=== PATIENT | male | born 1935 | race Asian ===

== ENCOUNTER 2019-06-25 13:31 | Inpatient (IN) | payer MEDICARE, MEDICAID ==
[~2019-06-25] VITALS: Ht 167.6 cm; Wt 62.6 kg
[2019-06-25] VITALS (8 sets, daily range): BP systolic 112–169; BP diastolic 68–80
[~2019-06-25 13:31] MED LIST: AMLODIPINE BESYL5 MG ORAL; ATENOLOL50 MG ORAL; ATORVASTATIN CA20 MG ORAL; DONEPEZIL HCL5 M2 ORAL; LEXAPRO10 MG ORAL; LOSARTAN POTASS50 MG ORAL; METFORMIN HCL500 M1 ORAL; NAMENDA10 MG ORAL; PROSCAR5 MG ORAL
--- NOTE | 2019-06-25 13:40 | NUR ---
ED Nurse Note: pt is triaged, awaiting for a private room outside of ER at this time with ambulance personnels.
[2019-06-25] MEDS ORDERED: MULTIVITAMINS1 EAC8 ORAL (13:47)
[2019-06-25] MEDS ORDERED: MYLANTA MAXIMU355 ML PO (13:47)
[2019-06-25] MEDS ORDERED: NAMENDA10 MG ORAL (13:47)
[2019-06-25] MEDS ORDERED: FISH OIL PO (13:47)
[2019-06-25] MEDS ORDERED: ACETAMINOPHEN325 M1 ORAL (13:47)
[2019-06-25] MEDS ORDERED: WEEKLY-D1250 MCG PO (13:47)
[2019-06-25] MEDS ORDERED: ZYPREXA5 MG ORAL (13:47)
--- NOTE | 2019-06-25 14:00 | NUR ---
ED Nurse Note: Pt brought in by [facility] for c/o left sided chest pain that started 45 minutes prior arrival. nitro spray x 1 was given en route. pt is sinus portia on cardiac catheterization technologist. (hr 45)
[2019-06-25] MEDS ORDERED: Omnipaque-300 100ml vial INJ ONE (14:15)
--- NOTE | 2019-06-25 14:23 | NUR ---
ED Nurse Note: swabs and blood sample sent down to lab
--- NOTE | 2019-06-25 14:25 | Emergency Room Report ---
History of Present Illness General Chief Complaint: Chest Pain Source: Patient, Medical Record, EMS Present Illness HPI Patient is an 84-year-old male sent in from [place] [facility] for increased chest pain. Pain had onset of symptoms approximately 45 minutes prior to arrival. Patient was brought in by ambulance. Patient reports of increased pain to the left side of his chest. Reportedly been having increased cough. Patient was given a nitro spray x1. Allergies: Coded Allergies: No Known Allergies (Unverified , 06/12/17) COVID-19 Screening Contact w/high risk pt: No Recent Travel to affected area: No Experienced COVID-19 symptoms?: No Patient History Past Medical History: see triage record Reviewed Nursing Documentation: PMH: Agreed; PSxH: Agreed Nursing Documentation-PMH Hx Hypertension: Yes - HTN Hx Diabetes: Yes - DM II Hx Gastrointestinal Problems: Yes - GERD History Of Psychiatric Problem: Yes - Anxiety, Schizoaffective disorder, Depression, Alzheimer's disease Review of Systems All Other Systems: negative except mentioned in HPI Physical Exam Vital Signs Date Time Temp Pulse Resp B/P (MAP) Pulse Ox O2 Delivery O2 Flow Rate FiO2 06/25/19 13:24 97.2 46 14 110/74 (86) 95 Room Air Sp02 EP Interpretation: reviewed, normal General Appearance: normal inspection, well appearing, no apparent distress, alert Head: atraumatic ENT: normal ENT inspection, hearing grossly normal, normal voice Neck: normal inspection, full range of motion, supple, no bony tend Respiratory: normal inspection, lungs clear, normal breath sounds, no respiratory distress, no retraction, no wheezing Cardiovascular #1: regular rate, rhythm, no edema Gastrointestinal: normal inspection, normal bowel sounds, soft, no guarding, no hernia, tenderness - Left upper quadrant tenderness Genitourinary: no CVA tenderness Musculoskeletal: normal inspection, back normal, normal range of motion Neurologic: alert, motor strength/tone normal, responsive, normal inspection Psychiatric: normal inspection, mood/affect normal Medical Decision Making Diagnostic Impression: Primary Impression: Chest pain Additional Impressions: Bradycardia Hypoxia Dementia ER Course Presented for chest pain. Differential diagnosis includes not limited to pneumonia, myocardial infarction, coronavirus infection, pulmonary embolism among others. Because of complexity of patient's case laboratory tests and imaging studies were ordered. Patient was noted to have some left-sided chest pain with a associated left upper abdomen tenderness. He was noted to be bradycardic with initial heart rate in the high 40s. EKG interpreted by me showed sinus bradycardia with a rate of [address] or T wave changes. Patient was placed on a monitor technician. Coronavirus swab was sent due to patient's residence in a [facility]. Chest x-ray showed Linear area of scar or atelectasis at the right base. The lungs otherwise appear clear. Pulmonary vascular is within limits. CT of the chest showed some bibasilar atelectasis without evidence of acute infiltrate. CT of abdomen and pelvis did not show any evidence of acute obstruction. Patient was discussed with Dr. Kaiser patient will be admitted for further evaluation of chest pain and bradycardia. Labs Test 06/25/19 14:13 White Blood Count 4.8 K/UL (4.8-10.8) Red Blood Count 4.70 M/UL (4.70-6.10) Hemoglobin 15.0 G/DL (14.2-18.0) Hematocrit 42.2 % (42.0-52.0) Mean Corpuscular Volume 90 FL (80-99) Mean Corpuscular Hemoglobin 31.9 PG (27.0-31.0) Mean Corpuscular Hemoglobin Concent 35.6 G/DL (32.0-36.0) Red Cell Distribution Width 11.3 % (11.6-14.8) Platelet Count 194 K/UL (150-450) Mean Platelet Volume 6.7 FL (6.5-10.1) Neutrophils (%) (Auto) 49.1 % (45.0-75.0) Lymphocytes (%) (Auto) 36.4 % (20.0-45.0) Monocytes (%) (Auto) 11.9 % (1.0-10.0) Eosinophils (%) (Auto) 2.0 % (0.0-3.0) Basophils (%) (Auto) 0.6 % (0.0-2.0) Sodium Level 142 MMOL/L (136-145) Potassium Level 4.6 MMOL/L (3.5-5.1) Chloride Level 107 MMOL/L (98-107) Carbon Dioxide Level 21 MMOL/L (21-32) Anion Gap 14 mmol/L (5-15) Blood Urea Nitrogen 30 mg/dL (7-18) Creatinine 1.3 MG/DL (0.55-1.30) Estimat Glomerular Filtration Rate 52.5 mL/min (>60) Glucose Level 121 MG/DL (74-106) Lactic Acid Level 1.90 mmol/L (0.4-2.0) Calcium Level 10.1 MG/DL (8.5-10.1) Total Bilirubin 0.6 MG/DL (0.2-1.0) Aspartate Amino Transf (AST/SGOT) 28 U/L (15-37) Alanine Aminotransferase (ALT/SGPT) 34 U/L (12-78) Alkaline Phosphatase 57 U/L (46-116) Total Creatine Kinase 108 U/L (26-308) Creatine Kinase MB 1.0 NG/ML (0.0-3.6) Creatine Kinase MB Relative Index 0.9 Troponin I 0.000 ng/mL (0.000-0.056) Pro-B-Type Natriuretic Peptide 108 pg/mL (0-125) Total Protein 7.8 G/DL (6.4-8.2) Albumin 4.0 G/DL (3.4-5.0) Globulin 3.8 g/dL Albumin/Globulin Ratio 1.1 (1.0-2.7) Lipase 253 U/L (73-393) EKG Diagnostic Results Rate: bradycardiac Rhythm: NSR ST Segments: no acute changes Last Vital Signs Date Time Temp Pulse Resp B/P (MAP) Pulse Ox O2 Delivery O2 Flow Rate FiO2 06/25/19 13:24 97.2 46 14 110/74 (86) 95 Room Air Status: unchanged Disposition: ADMITTED INPATIENT Condition: Stable Emre Cortes MD Jun 25, 2019 14:25
--- NOTE | 2019-06-25 14:39 | NUR ---
ED Nurse Note: x ray at bedside.
[2019-06-25 14:51] LABS: BASOPHILS % (AUTO) 0.6 % (0.0-2.0); HEMATOCRIT 42.2 % (42.0-52.0); LYMPHOCYTES % (AUTO) 36.4 % (20.0-45.0); MEAN CORPUSCULAR VOLUME 90 FL (80-99); MONOCYTES % (AUTO) 11.9 % (1.0-10.0); NEUTROPHILS % (AUTO) 49.1 % (45.0-75.0); PLATELET COUNT 194 K/UL (150-450); RED CELL DISTRIBUTION WIDTH 11.3 % (11.6-14.8); WHITE BLOOD COUNT 4.8 K/UL (4.8-10.8)
[2019-06-25 15:01] LABS: ANION GAP 14 mmol/L (5-15); BLOOD UREA NITROGEN 30 mg/dL (7-18); CALCIUM 10.1 MG/DL (8.5-10.1); CARBON DIOXIDE 21 MMOL/L (21-32); CHLORIDE 107 MMOL/L (98-107); CREATININE 1.3 MG/DL (0.55-1.30); POTASSIUM 4.6 MMOL/L (3.5-5.1); SODIUM 142 MMOL/L (136-145)
[2019-06-25 15:18] LABS: ALANINE AMINOTRANSFERASE 34 U/L (12-78); ALBUMIN/GLOBULIN RATIO 1.1 (1.0-2.7); ALKALINE PHOSPHATASE 57 U/L (46-116); ASPARTATE AMINO TRANSFERASE 28 U/L (15-37); BILIRUBIN,TOTAL 0.6 MG/DL (0.2-1.0); CREATINE KINASE 108 U/L (26-308)
--- NOTE | 2019-06-25 15:21 | Diagnostic Imaging Report ---
History: CP Exam: XR CXR 1 VIEW Comparison: FINDINGS: Linear area of scar or atelectasis at the right base. The lungs otherwise appear clear. Pulmonary vascular is within limits. Cardiac and mediastinal contours appear within limits. Atherosclerotic changes aortic arch. Old posterior left seventh rib fracture. Left shoulder osteoarthrosis. IMPRESSION: Linear area of scar or atelectasis at the right base. The lungs otherwise appear clear. Pulmonary vascular is within limits.
--- NOTE | 2019-06-25 15:35 | NUR ---
ED Nurse Note: PT in bed resting, no acute distress is noted. VSS as documented.
--- NOTE | 2019-06-25 17:19 | Diagnostic Imaging Report ---
EXAM: CT Chest With Intravenous Contrast CLINICAL HISTORY: PAIN TECHNIQUE: Axial computed tomography images of the chest with intravenous contrast. CTDI is 68.3 mGy and DLP is 434.7 mGy-cm. One or more of the following dose reduction techniques were used: automated exposure control, adjustment of the mA and/or kV according to patient size, use of iterative reconstruction technique. COMPARISON: Chest x-ray today FINDINGS: Lungs: Hypoventilatory lungs. Mild bibasilar lung atelectasis. Pleural space: Unremarkable. No pneumothorax. No significant effusion. Heart: Cardiomegaly. Coronary artery disease. No significant pericardial effusion. Bones/joints: Old left posterior rib fracture. No dislocation. Soft tissues: Unremarkable. Vasculature: Right shoulder and upper back venous collaterals may be from chronicle venous occlusive process. Atherosclerotic vascular disease. No thoracic aortic aneurysm. Lymph nodes: Unremarkable. No enlarged lymph nodes. IMPRESSION: 1. Hypoventilatory lungs. Mild bibasilar lung atelectasis. 2. Cardiomegaly. Coronary artery disease. 3. Right shoulder and upper back venous collaterals may be from chronicle venous occlusive process. EXAM: CT Abdomen and Pelvis With Intravenous Contrast CLINICAL HISTORY: PAIN TECHNIQUE: Axial computed tomography images of the abdomen and pelvis with intravenous contrast. CTDI is 68.3 mGy and DLP is 434.7 mGy-cm. One or more of the following dose reduction techniques were used: automated exposure control, adjustment of the mA and/or kV according to patient size, use of iterative reconstruction technique. COMPARISON: No relevant prior studies available. FINDINGS: Lung bases: Bibasilar lung atelectasis. ABDOMEN: Liver: 10 mm Low-density lesion right lobe of the liver. Fatty liver. Gallbladder and bile ducts: Small gallstone. No ductal dilation. Pancreas: Unremarkable. No mass. No ductal dilation. Spleen: Unremarkable. No splenomegaly. Adrenals: Unremarkable. No mass. Kidneys and ureters: Low-density lesions bilateral kidneys, largest 6 cm of the left kidney and 12 mm in the right kidney, likely cysts. Mild bilateral perinephric stranding likely senescent. No obstructive uropathy. 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 A few scattered colonic diverticuli. No bowel obstruction or inflammatory changes. No mucosal thickening. PELVIS: Appendix: No findings to suggest acute appendicitis. Bladder: Unremarkable. No mass. Reproductive: Slightly prominent prostate. ABDOMEN and PELVIS: Intraperitoneal space: Unremarkable. No free air. No significant fluid collection. Bones/joints: Degenerative changes of the spine. Mild grade 1 anterolisthesis of L4 on L5 and retrolisthesis of L1 on L2 and L2 on L3. Mild/moderate degenerative changes of the hips. No acute fracture. No dislocation. Soft tissues: Unremarkable. Vasculature: Atherosclerotic vascular disease. No abdominal aortic aneurysm. Lymph nodes: Unremarkable. No enlarged lymph nodes. IMPRESSION: 1. 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 2. A few scattered colonic diverticuli. No bowel obstruction or inflammatory changes. 3. Small gallstone. 4. Low-density lesions bilateral kidneys, largest 6 cm of the left kidney and 12 mm in the right kidney, likely cysts.
--- NOTE | 2019-06-25 17:20 | NUR ---
ED Nurse Note: pt is in bed resting, no acute distress is noted. VSS as documented.
[2019-06-25] MEDS ORDERED: Milk of Magnesia 30ml Ud ORAL PRN (18:00)
--- NOTE | 2019-06-25 19:02 | NUR ---
ED Nurse Note: report given to LESLIE liang. endorsed plan of care.
--- NOTE | 2019-06-25 19:03 | NUR ---
ED Nurse Note: Patient is resting comfortably with no s/s of acute distress. Willcontinue to monitor.
--- NOTE | 2019-06-25 20:01 | NUR ---
ED Nurse Note: Perineal care provided, bed linen changed due to soiling. Patient provided with condom catheter for hygiene promotion and wound care prevention. Patient is awake and alert x2, able to communicate pain and discomfort well and aid in performance of ADL and poistion changes. Will continue to monitor progress.
[2019-06-25] MEDS: NovoLOG Insulin Flexpen SUBQ SCH (21:00)
--- NOTE | 2019-06-25 21:25 | NUR ---
ED Nurse Note: Patient expressed pain at left chest area upon palpation. Patient rendered Tylenol, will follow-up with reassessment accordingly. Patient tolerated scheduled medication administration well. Patient blood sugar below dosing for sliding scale, no insulin injection needed at this time. Patient rendered a sandwich and cranberry juice. Will continue to montor for progress.
--- NOTE | 2019-06-25 21:28 | NUR ---
ED Nurse Note: Patitent remains bradycardic ranging from 47-59, asymptomatic. Patient currently eating a sandwich without difficulty. Will continue to monitor.
--- NOTE | 2019-06-26 00:06 | NUR ---
ED Nurse Note: Patient is sleeping and experience hypotensive reading of 70/43. ERMD informed and verbal order for 1L IV fluid, N/S ordered and hung. Will continue to monitor progress of patient.
[2019-06-26 00:08] VITALS: BP 97/61
[2019-06-26 01:08] VITALS: BP 129/65
--- NOTE | 2019-06-26 01:08 | NUR ---
ED Nurse Note: Condom catheter dislodged and patient voided on bed. Perineal care provided along with new, clean linen. Smaller condom catheter applied. Blood pressure withing normal range. Will continue to monitor for transport to floor.
--- NOTE | 2019-06-26 01:44 | NUR ---
ED Nurse Note: Called and rendered report to Courtney NELSON.
--- NOTE | 2019-06-26 01:50 | NUR ---
NURSE NOTES: Received patient from LESLIE Lr. Patient awake, alert, and responsive. AOx2. Able to understand little irish, but is primarily frisian speaking. Persistently bradycardic, but asymptomatic. IV on right hand #20g, intact and flushed. No erythema, bleeding, or infiltration. 1/2 NS running at 75ml/hr, being tolerated well. Skin intact. Condom catheter in secured in place, draining well. Patient on contact and droplet precaution. Bed rails raised x2. Bed in lowest position, brakes engaged. Call light placed within reach. Will continue to monitor. Admission orders from Dr. Kaiser acknowledged.
--- NOTE | 2019-06-26 02:00 | NUR ---
ED Nurse Note: Patient transported to floor by zyglo technician and RN without complications.
--- NOTE | 2019-06-26 03:15 | Consultation ---
DATE OF CONSULTATION: 06/25/2019 CONSULTING PHYSICIAN: Nikos Kaiser M.D. REQUESTING PHYSICIAN: Rakesh Martinez MD. REASON FOR CONSULTATION: Bradycardia. HISTORY OF PRESENT ILLNESS: This is an 84-year-old [place] male, who resides at a prison facility where a large number of residents of contracted COVID-19. The patient apparently complained of chest discomfort. He was referred to the emergency room where he noted cough, congestion, and chest pain on the left side. He was given spray of nitroglycerin. It is unclear whether his symptoms resolved subsequently. The patient does have a known history of coronary artery disease. He has not had any fevers. emergency room workup was notable for a chest x-ray that suggested possible infiltrate, however, a CAT scan of the chest subsequently obtained did not reveal any focal consolidation, but some atelectasis. The patient was also noted to have bradycardia in the 40s and I have been asked to assist with further cardiovascular care. The patient is being placed on isolation for possible COVID-19 due to his risk factors. PAST MEDICAL HISTORY: Type 2 diabetes mellitus, gastroesophageal reflux disease, coronary artery disease, hypertensive heart disease, schizoaffective disorder, dementia with agitation, depression, osteoarthritis. ALLERGIES: None. MEDICATIONS: Reviewed and reconciled. FAMILY HISTORY: Noncontributory. SOCIAL HISTORY: Reportedly negative for smoking and substance abuse. He presently resides in a prison facility. REVIEW OF SYSTEMS: No fevers. No loss of vision. He is on insulin. He does have some apparent history of neuropathic pain. He does have cerebrovascular disease as noted above. He has had a prior history of coronary disease. He is on a beta-brea. There is no history of abnormal blood clotting or recent steroid use. PHYSICAL EXAMINATION: VITAL SIGNS: Blood pressure 110/74, pulse 46, respirations 14, afebrile, and room air oxygen saturation 95%. LUNGS: Bilateral breath sounds. No wheezing. Oropharynx clear. NECK: Supple. No bruits. No jugular venous distention. CARDIAC: Regular rhythm and rate. Normal S1 and S2 with a fourth heart sound. ABDOMEN: Soft. EXTREMITIES: No edema. LABORATORY DATA: EKG reveals sinus bradycardia. No acute ST-T wave change. Pro-natriuretic peptide is 108. Troponin is 0. CK is 106, BUN 30, creatinine 1.3, glucose 121, lactic acid normal. Sodium 142, potassium 4.6, and bicarb 21. White count 4.8 and hemoglobin 15. IMPRESSION: 1. Possible acute coronary syndrome. 2. Sinus bradycardia on beta-blockers. 3. Atelectasis and possible early pneumonic process. 4. COVID-19 exposure. 5. Type 2 diabetes mellitus. 6. Cerebrovascular disease with dementia and agitation. PLAN: 1. Cardiac monitoring. 2. Isolation. 3. COVID-19 swab already obtained in the emergency room. 4. Hold beta-brea. 5. Titrate ____ antihypertensive regimen based on clinical parameters. 6. DVT prophylaxis. 7. Antiplatelet therapy. Nikos Kaiser M.D. DR: RADHAMES JOB#: [id number] CC:
[2019-06-26] MEDS: NovoLOG Insulin Flexpen SUBQ SCH ×7 (06:20→20:58)
[2019-06-26 06:21] LABS: BASOPHILS % (AUTO) 0.5 % (0.0-2.0); HEMATOCRIT 41.4 % (42.0-52.0); HEMOGLOBIN 14.7 G/DL (14.2-18.0); LYMPHOCYTES % (AUTO) 36.4 % (20.0-45.0); MEAN CORPUSCULAR VOLUME 90 FL (80-99); MONOCYTES % (AUTO) 10.1 % (1.0-10.0); PLATELET COUNT 179 K/UL (150-450); RED CELL DISTRIBUTION WIDTH 11.3 % (11.6-14.8); WHITE BLOOD COUNT 4.7 K/UL (4.8-10.8)
[2019-06-26 07:10] LABS: ANION GAP 12 mmol/L (5-15); BLOOD UREA NITROGEN 23 mg/dL (7-18); CALCIUM 9.3 MG/DL (8.5-10.1); CARBON DIOXIDE 22 MMOL/L (21-32); CHLORIDE 108 MMOL/L (98-107); CREATININE 1.1 MG/DL (0.55-1.30); POTASSIUM 3.8 MMOL/L (3.5-5.1); SODIUM 142 MMOL/L (136-145)
[2019-06-26 07:25] LABS: ALANINE AMINOTRANSFERASE 33 U/L (12-78); ALBUMIN 3.7 G/DL (3.4-5.0); ALBUMIN/GLOBULIN RATIO 1.1 (1.0-2.7); ALKALINE PHOSPHATASE 60 U/L (46-116); ASPARTATE AMINO TRANSFERASE 24 U/L (15-37); BILIRUBIN,TOTAL 0.5 MG/DL (0.2-1.0); CHOLESTEROL 171 MG/DL (< 200); HDL CHOLESTEROL 42 MG/DL (40-60); TRIGLYCERIDES 128 MG/DL (30-150)
--- NOTE | 2019-06-26 07:30 | NUR ---
NURSE NOTES: pt in bed just had breakfast. 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 Pt reported no pain. Call light within reach, bed locked an in lowest position. Bed side rails up, and bed alarm on for safety. will continue to monitor pt.
--- NOTE | 2019-06-26 07:48 | NUR ---
HAND-OFF: Report given to LESLIE Lozano.
[2019-06-26 08:10] VITALS: BP 114/63
[2019-06-26] MEDS: Aspirin Baby 81mg ORAL SCH (09:24)
[2019-06-26] MEDS: Heparin 5000 units/ml inj SUBQ SCH ×2 (09:28→20:57)
--- NOTE | 2019-06-26 09:34 | NUR ---
NURSE NOTES: Scanner not working, manually admitted meds
--- NOTE | 2019-06-26 15:30 | NUR ---
CASE MANAGEMENT:REVIEW 84 YR OLD MALE BIBA FROM [facility] CC: CHEST PAIN SI: SUSPECTED COVID 19. 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
--- NOTE | 2019-06-26 15:45 | Consultation ---
DATE OF CONSULTATION: 06/26/2019 INFECTIOUS DISEASES CONSULTATION CONSULTING PHYSICIAN: Albaro Dawson MD. REFERRING PHYSICIAN: Nikos Kaiser MD. REASON FOR CONSULTATION: Rule out COVID-19 pneumonia. HISTORY OF PRESENTING ILLNESS: This is an 84-year-old gentleman with history of diabetes, hypertension, schizoaffective disorder, dementia, who came in with congestion along with cough and chest pain. There was a concern for COVID-19 pneumonia and an Infectious Diseases consultation has been obtained for antibiotics. PAST MEDICAL HISTORY: 1. History of diabetes. 2. Hypertension. 3. GERD. 4. Coronary artery disease. 5. Schizoaffective disorder. 6. Dementia. 7. Depression. 8. Osteoarthritis. SOCIAL HISTORY: No history of smoking, alcohol, or drug use. FAMILY HISTORY: Unknown. REVIEW OF SYSTEMS: Unable to obtain currently. MEDICATIONS: As an inpatient, the patient is on subcu heparin, aspirin, insulin, atorvastatin, Tylenol, and milk of magnesia. ALLERGIES: No known drug allergies. PHYSICAL EXAMINATION: VITAL SIGNS: Temperature of 97.6, T-max of 97.8, pulse of 59, respiratory rate of 19, blood pressure 114/63, O2 saturation of 98%. GENERAL: Examination deferred due to possibility of COVID-19. LABORATORY AND DIAGNOSTIC DATA: White count 4.7, hemoglobin 14.7, hematocrit 41.4, MCV 90, platelet count of 179,000; neutrophils of 51%. Sodium 142, potassium 3.8, chloride 108, bicarb 22, BUN 23, creatinine 1.1, glucose 117, calcium 9.3. Total bilirubin 0.5, AST 24, ALT 33, and alkaline phosphatase 60. Total protein 7.2, albumin 3.7. Cholesterol 171. Nasal swab was negative for influenza A and B. Chest x-ray is showing lungs are clear. CT of chest, abdomen, and pelvis is showing mild bibasilar lung atelectasis, coronary artery disease, and cardiomegaly. ASSESSMENT: This is an 84-year-old gentleman with history of diabetes, hypertension, schizoaffective disorder, dementia, who comes in with cough along with congestion and chest pain. A CT is negative for consolidation, but showing some atelectasis. 1. We would like to rule out COVID-19 pneumonia as a possibility. 2. Hypertension. 3. Diabetes. 4. Schizoaffective disorder. PLAN: 1. Awaiting testing for COVID-19. 2. Continue off antibiotics. 3. Continue isolation. I would like to thank, Dr. Kaiser, for this consultation. Christianokuntala Jovani Dawson DR: Alana JOB#: [id number] CC: Nikos Kaiser MD
--- NOTE | 2019-06-26 16:14 | Consultation ---
DATE OF CONSULTATION: 06/26/2019 PULMONARY CONSULTATION HISTORY OF PRESENT ILLNESS: This is an 84-year-old male who is a prison resident that particular facility has had multiple COVID-19 positive patients. The patient presented of chest discomfort and was brought to the emergency room. He was noted to have cough, chest congestion. He was admitted to the hospital for further workup and care. I have reviewed his imaging studies and I note that although his x-ray chest was clear except for atelectasis in the right lung base, he did undergo a CT of the chest, abdomen, pelvis, which showed bibasilar lung atelectasis and old posterior rib fracture but otherwise normal pulmonary parenchyma. At this time, the patient unable to provide any further history. PAST MEDICAL HISTORY: Notable for diabetes mellitus, GERD, CAD, hypertensive heart disease, schizoaffective disorder, dementia, depression, osteoarthritis. ALLERGIES: None. MEDICATIONS: Home medications reviewed and reconciled in chart. Current medications include half-normal saline, Tylenol, aspirin, Lipitor, DVT prophylaxis with subcutaneous heparin. REVIEW OF SYSTEMS: Unreliable. PHYSICAL EXAMINATION: GENERAL: Reveals an 84-year-old male. VITAL SIGNS: Blood pressure 114/60, heart rate is 62, respirations 18, he is afebrile, O2 saturation 97% on 2 liters of oxygen. HEENT: Unremarkable. CHEST: Clear breath sounds bilaterally. HEART: Normal heart sounds. ABDOMEN: Soft. LABORATORY DATA: Lab testing shows white count 4.7, otherwise normal CBC and BMP. Creatinine is 1.1. Troponin negative x2. LFTs are normal. IMPRESSION: 1. intermediate resident. 2. Positive history of exposure to COVID-19 patients. 3. Hypertension. 4. Diabetes mellitus. 5. Atelectasis. DISCUSSION: It is prudent to keep the patient on isolation till COVID-19 PCR is negative. Continue current medications and care. Order oxygen and pulmonary hygiene. We will follow carefully. Lenin Harris M.D. DR: Rocío JOB#: [id number] CC:
[2019-06-26] MEDS: Vancomycin 500 MG in NS 110 ML IVPB SCH (17:47)
--- NOTE | 2019-06-26 19:30 | NUR ---
HAND-OFF: Report given to Vyas/RN, pt in stable condition in bed.
--- NOTE | 2019-06-26 19:45 | NUR ---
NURSE NOTES: Pt received from LESLIE Lozano alert and oriented x2 to name and place, requires frequent re-orientation and re-direction as patient is confused. IV site asymptomatic and patent on R hand 20g running to NS at 75 as ordered. Bed alarm on. Bed in lowest position, call light and belongings within reach.
[2019-06-26 20:00] VITALS: BP 120/66
[2019-06-27] VITALS: BP 100/58
[2019-06-27] MEDS: Vancomycin 500 MG in NS 110 ML IVPB SCH ×2 (05:42→17:18)
--- NOTE | 2019-06-27 05:44 | Progress Note ---
DATE: 06/26/2019 CARDIOLOGY PROGRESS NOTE SUBJECTIVE: The patient remains on empiric antimicrobials. Blood culture positive for gram-positive cocci x1 noted. The patient remains afebrile. Still with episodes of bradycardia. Oxygen saturation on 2 liters is 98%. OBJECTIVE: LUNGS: Bilateral breath sounds. No wheezing. CARDIAC: Regular rhythm. Slow rate. Normal S1 and S2. ABDOMEN: Soft. EXTREMITIES: No edema. LABORATORY DATA: Monitor sinus bradycardia. White count 4.7 and hemoglobin 14.7. Sodium 142, potassium 3.8, bicarb 22, BUN 23, creatinine 1.1, TSH 2.2. Cholesterol, LDL is 104 and HDL is 42. Troponin negative x2. IMPRESSION: 1. pattern with no signs of acute myocardial infarction. 2. Sinus bradycardia, asymptomatic. The patient has been off beta-brea since admission. 3. Possible bacteremia with gram-positive cocci. Now, we will start on vancomycin. 4. Insulin-requiring diabetes, on insulin with titration. 5. Dyslipidemia. The patient may benefit from higher doses of statin therapy. 6. We will defer for now. PLAN: 1. Continue aspirin. 2. Hold beta-brea. 3. Await final cultures. 4. Pulmonary and ID consults noted. 5. We will follow. 6. Presently, there is no indication for a pacemaker. Nikos Kaiser M.D. DR: RADHAMES JOB#: [id number] CC:
[2019-06-27] MEDS: NovoLOG Insulin Flexpen SUBQ SCH ×7 (06:30→21:00)
--- NOTE | 2019-06-27 07:15 | NUR ---
HAND-OFF: Report given to LESLIE Lozano.
--- NOTE | 2019-06-27 07:45 | NUR ---
NURSE NOTES: pt in bed having breakfast on pvc monitor, no signs of cardiac or respiratory distress at this time. Bed in lowest position and locked, call light and side rails up x2. pt is trying to get out of bed continuously and keep trying to pull IV line out. willl continue to monitor pt.
[2019-06-27] MEDS: Aspirin Baby 81mg ORAL SCH (09:55)
[2019-06-27] MEDS: Heparin 5000 units/ml inj SUBQ SCH ×2 (09:57→21:05)
--- NOTE | 2019-06-27 10:00 | NUR ---
NURSE NOTES: pt keeps getting up advised family to speak to pt not to get up because he has an unsteady gait.
--- NOTE | 2019-06-27 10:34 | Infectious Diseases Prog Note ---
Assessment/Plan Assessment/Plan antibiotics : iv vancomycin A 1. gram positive sepsis 2. COVID 19 negative x 1 3. Hypertension. 4. Diabetes. 5. Schizoaffective disorder. P 1. iv vancomycin started 2. repeat COVID 19 test 3. will follow up cultures 4. continue isolation Subjective ROS Limited/Unobtainable: Yes Allergies: Coded Allergies: No Known Allergies (Unverified , 06/12/17) Objective Vital Signs Last 24 Hour Vital Signs Date Time Temp Pulse Resp B/P (MAP) Pulse Ox O2 Delivery O2 Flow Rate FiO2 06/27/19 09:08 Room Air 06/27/19 04:00 46 06/27/19 00:00 97.6 49 20 100/58 (72) 93 06/27/19 00:00 51 06/26/19 21:00 Room Air 06/26/19 20:00 55 06/26/19 20:00 97.2 52 20 120/66 (84) 93 06/26/19 18:00 2.0 06/26/19 16:00 73 06/26/19 16:00 2.0 06/26/19 15:00 2.0 06/26/19 13:00 2.0 06/26/19 12:00 49 06/26/19 11:00 2.0 Height (Feet): 5 Height (Inches): 6.00 Weight (Pounds): 140 Microbiology Date/Time Source Procedure Growth Status 06/25/19 14:15 Blood Blood Culture - Preliminary Gram Positive Cocci Resulted 06/25/19 14:00 Blood Blood Culture - Preliminary Resulted 06/25/19 19:00 Nasal Nares MRSA Culture - Final NO METHICILLIN RESISTANT STAPH AUREUS... Complete 06/25/19 14:15 Nasal Nares - Final Complete 06/25/19 14:15 Nasal Nares - Final Complete 06/25/19 14:13 Nasopharynx Coronavirus COVID-19 PCR ([facility]) - Final Complete 06/25/19 19:00 Rectum VRE Culture - Final NO VANCOMYCIN RESISTANT ENTEROCOCCUS ... Complete 06/25/19 19:00 Rectum Received Current Medications Medications (Trade) Dose Ordered Sig/Nalini Route PRN Reason Start Time Stop Time Status Last Admin Dose Admin Acetaminophen (Tylenol) 650 mg Q4H PRN ORAL fever, PRESSLEY, pain 06/25/19 18:00 07/25/19 17:59 06/26/19 21:41 Aspirin (ASA) 81 mg DAILY ORAL 06/26/19 09:00 08/10/19 08:59 06/27/19 09:55 Atorvastatin Calcium (Lipitor) 10 mg QHS ORAL 06/25/19 21:00 09/23/19 20:59 06/26/19 20:57 Dextrose (Dextrose 50%) 25 ml Q30M PRN IV Hypoglycemia 06/25/19 18:00 09/23/19 17:59 Dextrose (Dextrose 50%) 50 ml Q30M PRN IV Hypoglycemia 06/25/19 18:00 09/23/19 17:59 Heparin Sodium (Porcine) (Heparin 5000 units/ml) 5,000 units EVERY 12 HOURS SUBQ 06/26/19 09:00 08/10/19 08:59 06/27/19 09:57 Insulin Aspart (NovoLOG) BEFORE MEALS AND HS SUBQ 06/25/19 21:00 09/23/19 20:59 06/26/19 17:40 Insulin Aspart (NovoLOG) NOVOTIAC SUBQ 06/26/19 06:30 09/24/19 06:29 Magnesium Hydroxide (Mom) 30 ml DAILY PRN ORAL Constipation 06/25/19 18:00 07/25/19 17:59 Sodium Chloride 1,000 ml @ 75 mls/hr [id number] IV 06/25/19 19:00 07/25/19 18:59 06/27/19 10:12 Vancomycin HCl (Vanco rx to dose) 1 ea DAILY PRN MISC Per rx protocol 06/26/19 17:15 07/26/19 17:14 Vancomycin HCl 500 mg/Sodium Chloride 110 ml @ 110 mls/hr Q12HR@0600,1800 IVPB 06/26/19 18:00 07/01/19 17:59 06/27/19 05:42 Albaro Dawson MD Jun 27, 2019 10:34
--- NOTE | 2019-06-27 10:53 | Pulmonology Progress Note ---
Assessment/Plan Assessment/Plan IMPRESSION: 1. [facility] resident. 2. Positive history of exposure to COVID-19 patients. 3. Hypertension. 4. Diabetes mellitus. 5. Atelectasis. DISCUSSION: Continue current medications and care. Continue oxygen and pulmonary hygiene. I will follow carefully. Low flow O2 Lenin Harris M.D. Subjective ROS Limited/Unobtainable: Yes Interval Events: Initial COVID 19 pcr negative Constitutional: Reports: no symptoms HEENT: Repors: no symptoms Respiratory: Reports: no symptoms Cardiovascular: Reports: no symptoms Gastrointestinal/Abdominal: Reports: no symptoms Allergies: Coded Allergies: No Known Allergies (Unverified , 06/12/17) Objective Last 24 Hour Vital Signs Date Time Temp Pulse Resp B/P (MAP) Pulse Ox O2 Delivery O2 Flow Rate FiO2 06/27/19 09:08 Room Air 06/27/19 04:00 46 06/27/19 00:00 97.6 49 20 100/58 (72) 93 06/27/19 00:00 51 06/26/19 21:00 Room Air 06/26/19 20:00 55 06/26/19 20:00 97.2 52 20 120/66 (84) 93 06/26/19 18:00 2.0 06/26/19 16:00 73 06/26/19 16:00 2.0 06/26/19 15:00 2.0 06/26/19 13:00 2.0 06/26/19 12:00 49 06/26/19 11:00 2.0 Intake and Output 06/26/19 06/27/19 19:00 07:00 Intake Total 140 ml 525 ml Output Total 1200 ml Balance -1060 ml 525 ml Intake Oral 140 ml 150 ml IV Total 375 ml Output Urine Total 1200 ml # Voids 3 4 # Bowel Movements 1 General Appearance: no acute distress HEENT: normocephalic Respiratory/Chest: chest wall non-tender, lungs clear Cardiovascular: normal peripheral pulses, normal rate Abdomen: normal bowel sounds Microbiology Date/Time Source Procedure Growth Status 06/25/19 14:15 Blood Blood Culture - Preliminary Gram Positive Cocci Resulted 06/25/19 14:00 Blood Blood Culture - Preliminary Resulted 06/25/19 19:00 Nasal Nares MRSA Culture - Final NO METHICILLIN RESISTANT STAPH AUREUS... Complete 06/25/19 14:15 Nasal Nares - Final Complete 06/25/19 14:15 Nasal Nares - Final Complete 06/25/19 14:13 Nasopharynx Coronavirus COVID-19 PCR ([facility]) - Final Complete 06/25/19 19:00 Rectum VRE Culture - Final NO VANCOMYCIN RESISTANT ENTEROCOCCUS ... Complete 06/25/19 19:00 Rectum Received Current Medications Medications (Trade) Dose Ordered Sig/Nalini Route PRN Reason Start Time Stop Time Status Last Admin Dose Admin Acetaminophen (Tylenol) 650 mg Q4H PRN ORAL fever, PRESSLEY, pain 06/25/19 18:00 07/25/19 17:59 06/26/19 21:41 Aspirin (ASA) 81 mg DAILY ORAL 06/26/19 09:00 08/10/19 08:59 06/27/19 09:55 Atorvastatin Calcium (Lipitor) 10 mg QHS ORAL 06/25/19 21:00 09/23/19 20:59 06/26/19 20:57 Dextrose (Dextrose 50%) 25 ml Q30M PRN IV Hypoglycemia 06/25/19 18:00 09/23/19 17:59 Dextrose (Dextrose 50%) 50 ml Q30M PRN IV Hypoglycemia 06/25/19 18:00 09/23/19 17:59 Heparin Sodium (Porcine) (Heparin 5000 units/ml) 5,000 units EVERY 12 HOURS SUBQ 06/26/19 09:00 08/10/19 08:59 06/27/19 09:57 Insulin Aspart (NovoLOG) BEFORE MEALS AND HS SUBQ 06/25/19 21:00 09/23/19 20:59 06/26/19 17:40 Insulin Aspart (NovoLOG) NOVOTIAC SUBQ 06/26/19 06:30 09/24/19 06:29 Magnesium Hydroxide (Mom) 30 ml DAILY PRN ORAL Constipation 06/25/19 18:00 07/25/19 17:59 Sodium Chloride 1,000 ml @ 75 mls/hr [id number] IV 06/25/19 19:00 07/25/19 18:59 06/27/19 10:12 Vancomycin HCl (Vanco rx to dose) 1 ea DAILY PRN MISC Per rx protocol 06/26/19 17:15 07/26/19 17:14 Vancomycin HCl 500 mg/Sodium Chloride 110 ml @ 110 mls/hr Q12HR@0600,1800 IVPB 06/26/19 18:00 07/01/19 17:59 06/27/19 05:42 Lenin Harris MD Jun 27, 2019 10:53
--- NOTE | 2019-06-27 11:00 | NUR ---
NURSE NOTES: put pt back in bed pt is standing by door and is confused wanting to go home.
--- NOTE | 2019-06-27 14:43 | NUR ---
NURSE NOTES: Called Dr Kaiser to ask for restrain order. pt pulled out IV and was bleeding all over the floor bed. Changed and cleaned pt and put him back in bed. restarted IV line once again.
--- NOTE | 2019-06-27 18:53 | NUR ---
NURSE NOTES: doctor Job bowen to put pt on restrain. Orders were input
[2019-06-27 20:00] VITALS: BP 140/82
--- NOTE | 2019-06-27 20:25 | NUR ---
HAND-OFF: Report given to Madelyn/sher pt in stable condition. pt pulled out IVline before he was put on restrains.
--- NOTE | 2019-06-27 20:29 | NUR ---
NURSE NOTES: RECEIVED REPORT FROM LESLIE ROSENTHAL. PATIENT SEEN AMBULATING IN HALLWAY AFTER REMOVING BILATERAL WRIST SOFT RESTRAINTS, WITH IV ON RIGHT HAND REMOVED- NO COMPROMISE NOTED TO CIRCULATION, MOBILITY OR SENSATION. PATIENT RE-EDUCATED ON PURPOSE OF RESTRAINTS, WAS PUT BACK TO BED. ALERT, OX2, VERBALLY RESPONSIVE IN THAI, AND ABLE TO MAKE NEEDS KNOWN. NO COMPLAINTS OF PAIN OR DISCOMFORT AT THIS TIME. BREATHING IS EVEN AND UNLABORED ON ROOM AIR, NO S/SX OF DISTRESS NOTED. NO IV SITE AT THIS TIME, WILL RE-INSERT AT A LATER TIME. DROPLET AND CONTACT PRECAUTIONS IMPLEMENTED. BED LOCKED AND IN LOWEST POSITION, SIDERAILS UP X 2. CALL LIGHT WITHIN REACH. WILL CONTINUE TO MONITOR.
[2019-06-28] VITALS: BP_SYST 124; BP_SYST 154; BP_DIAS 87
--- NOTE | 2019-06-28 02:30 | Progress Note ---
DATE: 06/27/2019 CARDIOLOGY PROGRESS NOTE SUBJECTIVE: The patient remains comfortable, no new distress, on low flow oxygen. Blood culture x1 positive for gram-positive cocci. PHYSICAL EXAMINATION: VITAL SIGNS: Blood pressure 140/82, pulse 94, respiratory rate 22, afebrile, room air oxygen sat 93%. LUNGS: Few rhonchi. HEART: Regular rhythm and rate. Normal S1, S2. ABDOMEN: Soft. EXTREMITIES: No edema. LABORATORY AND DIAGNOSTIC DATA: COVID-19 swab x 1 negative. Second swab pending. Monitored rhythm sinus with resolved bradycardia. IMPRESSION: 1. Resolved sinus bradycardia, off beta-blockers, no signs of acute myocardial ischemia. 2. Bacteremia with gram-positive cocci. 3. Insulin-requiring diabetes. 4. Dyslipidemia. PLAN: 1. Anti-platelet therapy. 2. Continue to hold beta-brea. 3. Empiric antimicrobials. 4. Isolation, pending COVID-19 swab. 5. Await final blood cultures. 6. No additional cardiovascular studies presently planned. Nikos Kaiser M.D. DR: Celia JOB#: [id number] CC:
[2019-06-28 04:00] VITALS: BP 138/84
[2019-06-28] MEDS: Vancomycin 500 MG in NS 110 ML IVPB SCH (06:04)
[2019-06-28] MEDS: NovoLOG Insulin Flexpen SUBQ SCH ×7 (06:30→21:00)
--- NOTE | 2019-06-28 07:30 | NUR ---
NURSE NOTES: Received report from LESLIE Joshi. Patient in bed agitated, trying to get out of bed. Patient AOx2, confused, on room air. IV on right hand 22G, asymptomatic, patent, intact, IVF running as prescribed rate. Patient on bilateral wrist restraints, able to move, cap refill <3 sec. Patient educated not to get up from bed without calling staff member. Bed in lowest position, side rails upx2, call light within reach, bed alarm on. Will continue to monitor.
--- NOTE | 2019-06-28 07:41 | NUR ---
HAND-OFF: Report given to LESLIE MCPHERSON. PLAN OF CARE ENDORSED.
[2019-06-28 08:00] VITALS: BP 132/80
[2019-06-28] MEDS: Aspirin Baby 81mg ORAL SCH (08:19)
[2019-06-28] MEDS: Heparin 5000 units/ml inj SUBQ SCH ×2 (08:20→21:00)
--- NOTE | 2019-06-28 08:58 | General Progress Note ---
Assessment/Plan Problem List: (1) Toxic metabolic encephalopathy ICD Codes: G92 - Toxic encephalopathy SNOMED: 642620759 (2) Bacteremia ICD Codes: R78.81 - Bacteremia SNOMED: 0589856 (3) Sepsis ICD Codes: A41.9 - Sepsis, unspecified organism SNOMED: 40111028 (4) Suspected COVID-19 virus infection ICD Codes: Z20.828 - Contact with and (suspected) exposure to other viral communicable diseases SNOMED: 740278872 (5) Bradycardia ICD Codes: R00.1 - Bradycardia, unspecified SNOMED: 37461561 (6) Hypoxia ICD Codes: R09.02 - Hypoxemia SNOMED: 691294811 (7) Chest pain ICD Codes: R07.9 - Chest pain, unspecified SNOMED: 49200567 (8) Dementia ICD Codes: F03.90 - Unspecified dementia without behavioral disturbance SNOMED: 96248287 Status: stable Assessment/Plan: cont iv abx per id follow up cultures anxiolytics and restraints as needed monitor for bradycardia dvt/stress ulcer prophylaxis Subjective ROS Limited/Unobtainable: Yes Constitutional: Reports: malaise, weakness HEENT: Reports: no symptoms Cardiovascular: Reports: no symptoms Respiratory: Reports: no symptoms Gastrointestinal/Abdominal: Reports: no symptoms Genitourinary: Reports: no symptoms Neurologic/Psychiatric: Reports: anxiety, emotional problems Endocrine: Reports: no symptoms Hematologic/Lymphatic: Reports: no symptoms Allergies: Coded Allergies: No Known Allergies (Unverified , 06/12/17) All Systems: reviewed and negative except above Subjective no events. remains intermittently agitated and confused. trying to get out of bed. no fevers. covid neg x 1 +blood cultures. on iv abx Objective Last 24 Hour Vital Signs Date Time Temp Pulse Resp B/P (MAP) Pulse Ox O2 Delivery O2 Flow Rate FiO2 06/28/19 04:53 98.1 06/28/19 04:00 71 06/28/19 04:00 97.8 70 20 138/84 (102) 95 06/28/19 00:00 98.1 71 18 124/87 (99) 93 06/28/19 00:00 77 06/27/19 21:00 Room Air 06/27/19 20:00 97.9 94 22 140/82 (101) 93 4/28/20 20:00 98 06/27/19 16:00 82 06/27/19 12:00 68 06/27/19 09:08 Room Air Intake and Output 06/27/19 06/28/19 19:00 07:00 Intake Total 229 ml 730 ml Output Total 1200 ml Balance -971 ml 730 ml Intake Oral 120 ml IV Total 109 ml 730 ml Output Urine Total 1200 ml # Voids 3 5 Laboratory Tests 06/28/19 05:00: Vancomycin Level Trough 3.0L Height (Feet): 5 Height (Inches): 6.00 Weight (Pounds): 138 General Appearance: WD/WN, confused, thin EENT: normal ENT inspection Neck: normal alignment, supple Cardiovascular: normal peripheral pulses, regular rhythm, no JVD Respiratory/Chest: chest wall non-tender, lungs clear, normal breath sounds, no respiratory distress, no accessory muscle use Abdomen: normal bowel sounds, non tender, soft, no organomegaly, no mass Edema: no edema noted Arm (L), no edema noted Arm (R), no edema noted Leg (L), no edema noted Leg (R), no edema noted Pedal (L), no edema noted Pedal (R), no edema noted 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
--- NOTE | 2019-06-28 10:09 | Infectious Diseases Prog Note ---
Assessment/Plan Assessment/Plan antibiotics : iv vancomycin A 1. coag neg staph bacteremia likely contaminated 2. COVID 19 negative x 1 3. Hypertension. 4. Diabetes. 5. Schizoaffective disorder. P 1. d/c iv vancomycin 2. repeat COVID 19 test pending 3. will follow up cultures 4. continue isolation Subjective ROS Limited/Unobtainable: Yes Allergies: Coded Allergies: No Known Allergies (Unverified , 06/12/17) Objective Vital Signs Last 24 Hour Vital Signs Date Time Temp Pulse Resp B/P (MAP) Pulse Ox O2 Delivery O2 Flow Rate FiO2 06/28/19 08:00 98.0 73 20 132/80 (97) 97 06/28/19 04:53 98.1 06/28/19 04:00 71 06/28/19 04:00 97.8 70 20 138/84 (102) 95 06/28/19 00:00 98.1 71 18 124/87 (99) 93 06/28/19 00:00 77 06/27/19 21:00 Room Air 06/27/19 20:00 97.9 94 22 140/82 (101) 93 06/27/19 20:00 98 06/27/19 16:00 82 06/27/19 12:00 68 Height (Feet): 5 Height (Inches): 6.00 Weight (Pounds): 138 Microbiology Date/Time Source Procedure Growth Status 06/25/19 14:15 Blood Blood Culture - Final Staphylococcus Haemolyticus Complete 06/25/19 14:00 Blood Blood Culture - Final Staphylococcus Haemolyticus Complete 06/25/19 19:00 Nasal Nares MRSA Culture - Final NO METHICILLIN RESISTANT STAPH AUREUS... Complete 06/25/19 14:15 Nasal Nares - Final Complete 06/25/19 14:15 Nasal Nares - Final Complete 06/25/19 14:13 Nasopharynx Coronavirus COVID-19 PCR ([facility]) - Final Complete 06/25/19 19:00 Rectum VRE Culture - Final NO VANCOMYCIN RESISTANT ENTEROCOCCUS ... Complete 06/25/19 19:00 Rectum - Final NO CARBAPENEM-RESISTANT ENTEROBACTERI... Complete Laboratory Tests Test 06/28/19 05:00 Vancomycin Level Trough 3.0 ug/mL (5.0-12.0) L Current Medications Medications (Trade) Dose Ordered Sig/Nalini Route PRN Reason Start Time Stop Time Status Last Admin Dose Admin Acetaminophen (Tylenol) 650 mg Q4H PRN ORAL fever, PRESSLEY, pain 06/25/19 18:00 07/25/19 17:59 06/28/19 04:23 Aspirin (ASA) 81 mg DAILY ORAL 06/26/19 09:00 08/10/19 08:59 06/28/19 08:19 Atorvastatin Calcium (Lipitor) 10 mg QHS ORAL 06/25/19 21:00 09/23/19 20:59 06/27/19 21:04 Dextrose (Dextrose 50%) 25 ml Q30M PRN IV Hypoglycemia 06/25/19 18:00 09/23/19 17:59 Dextrose (Dextrose 50%) 50 ml Q30M PRN IV Hypoglycemia 06/25/19 18:00 09/23/19 17:59 Heparin Sodium (Porcine) (Heparin 5000 units/ml) 5,000 units EVERY 12 HOURS SUBQ 06/26/19 09:00 08/10/19 08:59 06/28/19 08:20 Insulin Aspart (NovoLOG) BEFORE MEALS AND HS SUBQ 06/25/19 21:00 09/23/19 20:59 06/26/19 17:40 Insulin Aspart (NovoLOG) NOVOTIAC SUBQ 06/26/19 06:30 09/24/19 06:29 Magnesium Hydroxide (Mom) 30 ml DAILY PRN ORAL Constipation 06/25/19 18:00 07/25/19 17:59 Sodium Chloride 1,000 ml @ 75 mls/hr [id number] IV 06/25/19 19:00 07/25/19 18:59 06/28/19 00:36 Vancomycin HCl (Vanco rx to dose) 1 ea DAILY PRN MISC Per rx protocol 06/26/19 17:15 07/26/19 17:14 Vancomycin HCl 1 gm/Sodium Chloride 275 ml @ 183.708 mls/hr Q12H IVPB 06/28/19 18:00 07/03/19 17:59 Albaro Dawson MD Jun 28, 2019 10:09
--- NOTE | 2019-06-28 10:29 | Pulmonology Progress Note ---
Assessment/Plan Assessment/Plan IMPRESSION: 1. half-way resident. 2. Positive history of exposure to COVID-19 patients. 3. Hypertension. 4. Diabetes mellitus. 5. Atelectasis. DISCUSSION: Continue current medications and care. Continue oxygen and pulmonary hygiene. I will follow carefully. Low flow O2 Lenin Harris M.D. Subjective ROS Limited/Unobtainable: Yes Interval Events: Initial COVID 19 pcr negative Constitutional: Reports: no symptoms HEENT: Repors: no symptoms Respiratory: Reports: no symptoms Cardiovascular: Reports: no symptoms Gastrointestinal/Abdominal: Reports: no symptoms Allergies: Coded Allergies: No Known Allergies (Unverified , 06/12/17) All Systems: reviewed and negative except above Objective Last 24 Hour Vital Signs Date Time Temp Pulse Resp B/P (MAP) Pulse Ox O2 Delivery O2 Flow Rate FiO2 06/28/19 08:00 98.0 73 20 132/80 (97) 97 06/28/19 04:53 98.1 06/28/19 04:00 71 06/28/19 04:00 97.8 70 20 138/84 (102) 95 06/28/19 00:00 98.1 71 18 124/87 (99) 93 06/28/19 00:00 77 06/27/19 21:00 Room Air 06/27/19 20:00 97.9 94 22 140/82 (101) 93 06/27/19 20:00 98 06/27/19 16:00 82 06/27/19 12:00 68 Intake and Output 06/27/19 06/28/19 19:00 07:00 Intake Total 229 ml 730 ml Output Total 1200 ml Balance -971 ml 730 ml Intake Oral 120 ml IV Total 109 ml 730 ml Output Urine Total 1200 ml # Voids 3 5 General Appearance: no acute distress HEENT: normocephalic Respiratory/Chest: chest wall non-tender, lungs clear Cardiovascular: normal peripheral pulses, normal rate Abdomen: normal bowel sounds Microbiology Date/Time Source Procedure Growth Status 06/25/19 14:15 Blood Blood Culture - Final Staphylococcus Haemolyticus Complete 06/25/19 14:00 Blood Blood Culture - Final Staphylococcus Haemolyticus Complete 06/25/19 19:00 Nasal Nares MRSA Culture - Final NO METHICILLIN RESISTANT STAPH AUREUS... Complete 06/25/19 14:15 Nasal Nares - Final Complete 06/25/19 14:15 Nasal Nares - Final Complete 06/25/19 14:13 Nasopharynx Coronavirus COVID-19 PCR ([facility]) - Final Complete 06/25/19 19:00 Rectum VRE Culture - Final NO VANCOMYCIN RESISTANT ENTEROCOCCUS ... Complete 06/25/19 19:00 Rectum - Final NO CARBAPENEM-RESISTANT ENTEROBACTERI... Complete Laboratory Tests 06/28/19 05:00: Vancomycin Level Trough 3.0L Current Medications Medications (Trade) Dose Ordered Sig/Nalini Route PRN Reason Start Time Stop Time Status Last Admin Dose Admin Acetaminophen (Tylenol) 650 mg Q4H PRN ORAL fever, PRESSLEY, pain 06/25/19 18:00 07/25/19 17:59 06/28/19 04:23 Aspirin (ASA) 81 mg DAILY ORAL 06/26/19 09:00 08/10/19 08:59 06/28/19 08:19 Atorvastatin Calcium (Lipitor) 10 mg QHS ORAL 06/25/19 21:00 09/23/19 20:59 06/27/19 21:04 Dextrose (Dextrose 50%) 25 ml Q30M PRN IV Hypoglycemia 06/25/19 18:00 09/23/19 17:59 Dextrose (Dextrose 50%) 50 ml Q30M PRN IV Hypoglycemia 06/25/19 18:00 09/23/19 17:59 Heparin Sodium (Porcine) (Heparin 5000 units/ml) 5,000 units EVERY 12 HOURS SUBQ 06/26/19 09:00 08/10/19 08:59 06/28/19 08:20 Insulin Aspart (NovoLOG) BEFORE MEALS AND HS SUBQ 06/25/19 21:00 09/23/19 20:59 06/26/19 17:40 Insulin Aspart (NovoLOG) NOVOTIAC SUBQ 06/26/19 06:30 09/24/19 06:29 Magnesium Hydroxide (Mom) 30 ml DAILY PRN ORAL Constipation 06/25/19 18:00 07/25/19 17:59 Sodium Chloride 1,000 ml @ 75 mls/hr [id number] IV 06/25/19 19:00 07/25/19 18:59 06/28/19 00:36 Lenin Harris MD Jun 28, 2019 10:29
--- NOTE | 2019-06-28 11:29 | NUR ---
CASE MANAGEMENT:REVIEW 06/28/19 SI: ENCEPHALOPATHY. SEPSIS. BACTEREMIA COVID 19 NOT DETECTED~ REPEAT TESTING 98.0 73 20 132/80 97% ON RA IS: IV VANCOMYCIN Q12 IVF@75/HR HEPARIN SQ Q12 ASA PO QD LIPITOR PO QHS : TELEMETRY STATUS DCP: FROM [facility] PLAN: REPEAT COVID 19 TEST
[2019-06-28 12:00] VITALS: BP 136/79
[2019-06-28] MEDS ORDERED: LORazepam Inj 2mg/ml 1ml IM PRN (13:30)
--- NOTE | 2019-06-28 13:37 | NUR ---
NURSE NOTES: Per Dr. Job MD consult with Dr. Bray. Levi noted, entered, carried out. Will continue to monitor.
--- NOTE | 2019-06-28 13:40 | NUR ---
DISCHARGE PLANNING PATIENT IS FROM [facility] AND DC PLAN IS FOR HIM TO RETURN FIRST COVID 19 TEST NEGATIVE SECOND COVID TEST PENDING MAINTAIN ISOLATION NOT READY FOR DISCHARGE TODAY
--- NOTE | 2019-06-28 14:58 | NUR ---
NURSE NOTES: Patient agitated, confused, continuously getting out of bed even with soft wrist restraints. Explained risks and disadvantages, bed alarm on, bed in lowest position,
[2019-06-28 16:00] VITALS: BP 140/80
--- NOTE | 2019-06-28 16:59 | History and Physical Report ---
DATE OF ADMISSION: 06/25/2019 This is a late dictation for a visit on 06/27/2019. HISTORY OF PRESENT ILLNESS: Patient is an 84-year-old male that was transferred from a alf facility with concerns about possible COVID-19 infection. He complains of cough, congestion, fevers, chills, and shortness of breath. He was also noted to be bradycardic. On evaluation in the emergency room, patient had evidence of possible infiltrate. His heart rate was in the 40s. Patient was pancultured. He has been started on antibiotic therapy and is now admitted for further evaluation and care. His COVID-19 swab has already been done. PAST MEDICAL HISTORY: Significant for history of dementia, hypertension, hypertensive heart disease, ischemic cardiomyopathy, GERD, dementia with behavioral disturbance, history of diabetes. PAST SURGICAL HISTORY: Unknown. CURRENT MEDICATIONS: Reconciled and reviewed. ALLERGIES: None. FAMILY HISTORY: None. SOCIAL HISTORY: There is no known history of tobacco, ethanol, or drugs. REVIEW OF SYSTEMS: Unobtainable as patient is confused. PHYSICAL EXAMINATION: VITAL SIGNS: Temperature was 98 degrees, pulse of 50, blood pressure 110/70, respirations 14. GENERAL: Patient is a thin male, in no apparent distress. He is somewhat anxious. NECK: Supple. HEENT: Oropharynx is clear. Mucous members are moist. HEART: Bradycardic without murmurs, rubs, or gallops. LUNGS: Lungs are clear to auscultation bilaterally. No wheezes or rales. No accessory muscle use. ABDOMEN: Soft, nontender, nondistended. EXTREMITIES: Without clubbing, cyanosis, or edema. Patient moves all four extremities. LABORATORY DATA: EKG showed bradycardia. Troponin was negative. Sodium was 142, potassium 4.6. White count 5. ASSESSMENT: This is an elderly male transferred from alf facility because of cough, congestion, and fevers, worse from a skilled facility with other residents with COVID-19 worrisome for possible COVID-19 pneumonia. He is bradycardic, diabetes, hypertension, toxic metabolic encephalopathy. PLAN: Admit to isolation room. Follow COVID-19 swab. IV hydration. PRN anxiolytics. Cardiology evaluation regarding patient's bradycardia. Monitor Accu-Cheks with sliding scale. ID and Pulmonary consultations will also be obtained. Rakesh Martinez M.D. DR: TONY JOB#: [id number] CC:
[2019-06-28] MEDS ORDERED: Vancomycin 1 GM in NS 275 ML IVPB SCH (18:00)
--- NOTE | 2019-06-28 19:24 | NUR ---
HAND-OFF: Report given to LESLIE White. Endorsed plan of care.
[2019-06-28 20:00] VITALS: BP 155/88
--- NOTE | 2019-06-28 20:00 | NUR ---
HAND-OFF: Report given to Anjali NELSON.
[2019-06-29] VITALS: BP 157/89
--- NOTE | 2019-06-29 02:00 | Consultation ---
DATE OF CONSULTATION: 06/28/2019 CONSULTING PHYSICIAN: Brad Bray M.D. HISTORY OF PRESENT ILLNESS: Patient is an 84-year-old Turkmen male who is confused, disoriented, on restraints, cut off, came off the restraints today restraints. Turkmen speaking. Not redirectable. Poor insight. PAST PSYCHIATRIC HISTORY: Dementia. PAST MEDICAL HISTORY: Significant for hypertension, , cardiomyopathy, GERD. ALLERGIES: No known drug allergies. SUBSTANCE ABUSE HISTORY: No history of illicit drug use or alcohol. MENTAL STATUS EXAMINATION: Patient is alert. Turkmen speaking. Mood is agitated and angry. Affect is flat. Thought process, disorganized. Thought content, no suicidal or homicidal ideation. Cognition is impaired. Insight and judgment is impaired. ASSESSMENT: Parish I Dementia with behavior disturbance. Parish II Deferred. Parish III As above. Parish IV Low. Parish V 20 PLAN: 1. Celexa 20 mg in the morning. 2. Lorazepam p.r.n. 3. Discussed with the nurse. Brad Bray M.D. DR: FABY JOB#: [id number] CC:
--- NOTE | 2019-06-29 02:45 | Progress Note ---
DATE: 06/28/2019 CARDIOLOGY PROGRESS NOTE SUBJECTIVE: Patient remains with less congestion and decreasing shortness of breath. No complaints of chest pain. The patient has intermittent agitation and tries to get out of bed. PHYSICAL EXAMINATION: VITAL SIGNS: Blood pressure 138/84, heart rate 70, respirations 20, afebrile, oxygen saturation on room air in the 93 to 95% range. HEENT: No thrush. LUNGS: No accessory muscle use. Coarse breath sounds with few rhonchi. CARDIAC: Regular rhythm and rate. Normal S1, S2 with a 1/6 systolic murmur at the base. ABDOMEN: Soft. EXTREMITIES: No edema. Blood culture positive for Staphylococcus haemolyticus times 2/2 bottles. COVID swab x1 is negative. IMPRESSION: 1. Await second COVID-19 swab. 2. Continue isolation. 3. IV vancomycin per Infectious Disease loss prevention consultant. May discontinue if this is felt to be a contaminant. 4. Hypertensive heart disease. 5. Type 2 diabetes mellitus. 6. Resolved sinus bradycardia. 7. Ischemic heart disease with no signs of acute coronary insufficiency. PLAN: As outlined above. Nikos Kaiser M.D. DR: PAMELLA JOB#: [id number] CC:
[2019-06-29 04:00] VITALS: BP 157/89
[2019-06-29] MEDS: NovoLOG Insulin Flexpen SUBQ SCH ×6 (06:30→21:00)
--- NOTE | 2019-06-29 07:30 | NUR ---
NURSE NOTES: Received report from LESLIE Alba. Pt A/Ox2, denies any pain. Pt on B soft wrist restraints, pulses are present. No s/sx of acute distress. Breathing even and unlabored in RA. IV site patent and asymptomatic, running IVF at 75ml/hr. Bed on lowest position, call light within reach. Will continue plan of care.
[2019-06-29 07:50] LABS: BASOPHILS % (AUTO) 0.8 % (0.0-2.0); EOSINOPHILS % (AUTO) 1.4 % (0.0-3.0); HEMATOCRIT 43.3 % (42.0-52.0); HEMOGLOBIN 15.9 G/DL (14.2-18.0); MEAN CORPUSCULAR VOLUME 88 FL (80-99); MONOCYTES % (AUTO) 7.3 % (1.0-10.0); NEUTROPHILS % (AUTO) 60.5 % (45.0-75.0); PLATELET COUNT 132 K/UL (150-450); RED BLOOD COUNT 4.89 M/UL (4.70-6.10); RED CELL DISTRIBUTION WIDTH 10.8 % (11.6-14.8); WHITE BLOOD COUNT 4.8 K/UL (4.8-10.8)
[2019-06-29 08:00] VITALS: BP 166/95
--- NOTE | 2019-06-29 08:15 | NUR ---
NURSE NOTES: Left a message to Dr Dawson regarding the 2x negative covid-19 results of the pt. Awaiting for new orders.
--- NOTE | 2019-06-29 08:23 | General Progress Note ---
Assessment/Plan Problem List: (1) Toxic metabolic encephalopathy ICD Codes: G92 - Toxic encephalopathy SNOMED: 652408935 (2) Bacteremia ICD Codes: R78.81 - Bacteremia SNOMED: 1806188 (3) Sepsis ICD Codes: A41.9 - Sepsis, unspecified organism SNOMED: 61742968 (4) Suspected COVID-19 virus infection ICD Codes: Z20.828 - Contact with and (suspected) exposure to other viral communicable diseases SNOMED: 443236860 (5) Bradycardia ICD Codes: R00.1 - Bradycardia, unspecified SNOMED: 13275753 (6) Hypoxia ICD Codes: R09.02 - Hypoxemia SNOMED: 832246568 (7) Chest pain ICD Codes: R07.9 - Chest pain, unspecified SNOMED: 56909962 (8) Dementia ICD Codes: F03.90 - Unspecified dementia without behavioral disturbance SNOMED: 44679043 Status: stable, unchanged Assessment/Plan: off abx per ID covid neg x 2 anxiolytics and restraints as needed psych rx monitor for bradycardia dvt/stress ulcer prophylaxis Subjective ROS Limited/Unobtainable: No Constitutional: Reports: malaise, weakness HEENT: Reports: no symptoms Cardiovascular: Reports: no symptoms Respiratory: Reports: no symptoms Gastrointestinal/Abdominal: Reports: no symptoms Genitourinary: Reports: no symptoms Neurologic/Psychiatric: Reports: anxiety, emotional problems Endocrine: Reports: no symptoms Hematologic/Lymphatic: Reports: no symptoms Allergies: Coded Allergies: No Known Allergies (Unverified , 06/12/17) All Systems: reviewed and negative except above Subjective no events. remains intermittently agitated and confused. trying to get out of bed. no fevers. covid neg x 2 +blood cultures. on iv abx. restrained for safety. Objective Last 24 Hour Vital Signs Date Time Temp Pulse Resp B/P (MAP) Pulse Ox O2 Delivery O2 Flow Rate FiO2 06/29/19 04:00 97.2 71 18 157/89 (111) 71 06/29/19 04:00 62 06/29/19 00:00 97.6 72 18 157/89 (111) 71 06/29/19 00:00 62 06/28/19 21:00 Room Air 06/28/19 20:00 97.3 72 19 155/88 (110) 97 06/28/19 16:00 98.6 74 21 140/80 (100) 99 06/28/19 16:00 77 06/28/19 12:00 79 06/28/19 12:00 98.2 75 20 136/79 (98) 98 06/28/19 09:00 Room Air Intake and Output 06/28/19 06/29/19 19:00 07:00 Intake Total 800 ml 200 ml Balance 800 ml 200 ml Intake Oral 800 ml 200 ml # Voids 6 Laboratory Tests 06/29/19 05:52: White Blood Count 4.8, Red Blood Count 4.89, Hemoglobin 15.9, Hematocrit 43.3, Mean Corpuscular Volume 88, Mean Corpuscular Hemoglobin 32.6H, Mean Corpuscular Hemoglobin Concent 36.8H, Red Cell Distribution Width 10.8L, Platelet Count 132L , Mean Platelet Volume 6.8, Neutrophils (%) (Auto) 60.5, Lymphocytes (%) (Auto) 30.0, Monocytes (%) (Auto) 7.3, Eosinophils (%) (Auto) 1.4, Basophils (%) (Auto ) 0.8, Sodium Level [Pending], Potassium Level [Pending], Chloride Level [ Pending], Carbon Dioxide Level [Pending], Blood Urea Nitrogen [Pending], Creatinine [Pending], Estimat Glomerular Filtration Rate [Pending], Glucose Level [Pending], Calcium Level [Pending], Magnesium Level [Pending], Total Bilirubin [Pending], Aspartate Amino Transf (AST/SGOT) [Pending], Alanine Aminotransferase (ALT/SGPT) [Pending], Alkaline Phosphatase [Pending], Pro-B- Type Natriuretic Peptide [Pending], Total Protein [Pending], Albumin [Pending], Globulin [Pending] Height (Feet): 5 Height (Inches): 6.00 Weight (Pounds): 138 General Appearance: WD/WN, alert, confused, combative EENT: normal ENT inspection Neck: non-tender, normal alignment, supple Cardiovascular: normal peripheral pulses, normal rate Respiratory/Chest: chest wall non-tender, lungs clear, normal breath sounds, no respiratory distress, no accessory muscle use Abdomen: normal bowel sounds, non tender, soft, no organomegaly Extremities: normal range of motion Edema: no edema noted Arm (L), no edema noted Arm (R), no edema noted Leg (L), no edema noted Leg (R), no edema noted Pedal (L), no edema noted Pedal (R), no edema noted 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
[2019-06-29 08:26] LABS: ALANINE AMINOTRANSFERASE 40 U/L (12-78); ALBUMIN/GLOBULIN RATIO 1.1 (1.0-2.7); ALKALINE PHOSPHATASE 54 U/L (46-116); ANION GAP 15 mmol/L (5-15); ASPARTATE AMINO TRANSFERASE 47 U/L (15-37); BILIRUBIN,TOTAL 0.6 MG/DL (0.2-1.0); BLOOD UREA NITROGEN 14 mg/dL (7-18); CALCIUM 10.2 MG/DL (8.5-10.1); CARBON DIOXIDE 21 MMOL/L (21-32); CHLORIDE 104 MMOL/L (98-107); CREATININE 0.8 MG/DL (0.55-1.30); POTASSIUM 3.5 MMOL/L (3.5-5.1); SODIUM 140 MMOL/L (136-145)
[2019-06-29] MEDS: Aspirin Baby 81mg ORAL SCH (08:37)
[2019-06-29] MEDS: Heparin 5000 units/ml inj SUBQ SCH ×2 (08:38→21:00)
[2019-06-29] MEDS ORDERED: Citalopram Hydrobromide 10mg Tab ORAL SCH (09:00)
--- NOTE | 2019-06-29 11:39 | Infectious Diseases Prog Note ---
Assessment/Plan Assessment/Plan A 1. coag neg staph bacteremia likely contaminated 2. COVID 19 negative x 2 3. Hypertension. 4. Diabetes. 5. Schizoaffective disorder. P 1. discontinue droplet isolation 2. observe off antibiotic Subjective ROS Limited/Unobtainable: Yes Constitutional: Denies: fever Allergies: Coded Allergies: No Known Allergies (Unverified , 06/12/17) Objective Vital Signs Last 24 Hour Vital Signs Date Time Temp Pulse Resp B/P (MAP) Pulse Ox O2 Delivery O2 Flow Rate FiO2 06/29/19 09:00 Room Air 06/29/19 08:00 96.6 83 18 166/95 (118) 94 06/29/19 04:00 97.2 71 18 157/89 (111) 71 06/29/19 04:00 62 06/29/19 00:00 97.6 72 18 157/89 (111) 71 06/29/19 00:00 62 06/28/19 21:00 Room Air 06/28/19 20:00 97.3 72 19 155/88 (110) 97 06/28/19 16:00 98.6 74 21 140/80 (100) 99 06/28/19 16:00 77 06/28/19 12:00 79 06/28/19 12:00 98.2 75 20 136/79 (98) 98 Height (Feet): 5 Height (Inches): 6.00 Weight (Pounds): 138 General Appearance: no acute distress HEENT: mucous membranes moist Respiratory/Chest: decreased breath sounds Cardiovascular: normal rate Abdomen: soft, non tender Extremities: no edema Neurologic/Psychiatric: alert, responsive Microbiology Date/Time Source Procedure Growth Status 06/27/19 15:10 Nasopharynx Coronavirus COVID-19 PCR ([facility]) - Final Complete Laboratory Tests Test 06/29/19 05:52 White Blood Count 4.8 K/UL (4.8-10.8) Red Blood Count 4.89 M/UL (4.70-6.10) Hemoglobin 15.9 G/DL (14.2-18.0) Hematocrit 43.3 % (42.0-52.0) Mean Corpuscular Volume 88 FL (80-99) Mean Corpuscular Hemoglobin 32.6 PG (27.0-31.0) H Mean Corpuscular Hemoglobin Concent 36.8 G/DL (32.0-36.0) H Red Cell Distribution Width 10.8 % (11.6-14.8) L Platelet Count 132 K/UL (150-450) L Mean Platelet Volume 6.8 FL (6.5-10.1) Neutrophils (%) (Auto) 60.5 % (45.0-75.0) Lymphocytes (%) (Auto) 30.0 % (20.0-45.0) Monocytes (%) (Auto) 7.3 % (1.0-10.0) Eosinophils (%) (Auto) 1.4 % (0.0-3.0) Basophils (%) (Auto) 0.8 % (0.0-2.0) Sodium Level 140 MMOL/L (136-145) Potassium Level 3.5 MMOL/L (3.5-5.1) Chloride Level 104 MMOL/L (98-107) Carbon Dioxide Level 21 MMOL/L (21-32) Anion Gap 15 mmol/L (5-15) Blood Urea Nitrogen 14 mg/dL (7-18) Creatinine 0.8 MG/DL (0.55-1.30) Estimat Glomerular Filtration Rate > 60 mL/min (>60) Glucose Level 106 MG/DL (74-106) Calcium Level 10.2 MG/DL (8.5-10.1) H Magnesium Level 1.7 MG/DL (1.8-2.4) L Total Bilirubin 0.6 MG/DL (0.2-1.0) Aspartate Amino Transf (AST/SGOT) 47 U/L (15-37) H Alanine Aminotransferase (ALT/SGPT) 40 U/L (12-78) Alkaline Phosphatase 54 U/L (46-116) Pro-B-Type Natriuretic Peptide 267 pg/mL (0-125) H Total Protein 7.8 G/DL (6.4-8.2) Albumin 4.0 G/DL (3.4-5.0) Globulin 3.8 g/dL Albumin/Globulin Ratio 1.1 (1.0-2.7) Current Medications Medications (Trade) Dose Ordered Sig/Nalini Route PRN Reason Start Time Stop Time Status Last Admin Dose Admin Acetaminophen (Tylenol) 650 mg Q4H PRN ORAL fever, PRESSLEY, pain 06/25/19 18:00 07/25/19 17:59 06/28/19 04:23 Aspirin (ASA) 81 mg DAILY ORAL 06/26/19 09:00 08/10/19 08:59 06/29/19 08:37 Atorvastatin Calcium (Lipitor) 10 mg QHS ORAL 06/25/19 21:00 09/23/19 20:59 06/28/19 21:00 Citalopram Hydrobromide (CeleXA) 20 mg DAILY ORAL 06/29/19 09:00 07/29/19 08:59 06/29/19 08:37 Dextrose (Dextrose 50%) 25 ml Q30M PRN IV Hypoglycemia 06/25/19 18:00 09/23/19 17:59 Dextrose (Dextrose 50%) 50 ml Q30M PRN IV Hypoglycemia 06/25/19 18:00 09/23/19 17:59 Heparin Sodium (Porcine) (Heparin 5000 units/ml) 5,000 units EVERY 12 HOURS SUBQ 06/26/19 09:00 08/10/19 08:59 06/29/19 08:38 Insulin Aspart (NovoLOG) BEFORE MEALS AND HS SUBQ 06/25/19 21:00 09/23/19 20:59 06/28/19 13:09 Insulin Aspart (NovoLOG) NOVOTIAC SUBQ 06/26/19 06:30 09/24/19 06:29 Lorazepam (Ativan 2mg/ml 1ml) 1 mg Q4H PRN IM For Anxiety 06/28/19 13:30 07/05/19 13:29 06/28/19 13:49 Magnesium Hydroxide (Mom) 30 ml DAILY PRN ORAL Constipation 06/25/19 18:00 07/25/19 17:59 Sodium Chloride 1,000 ml @ 75 mls/hr [id number] IV 06/25/19 19:00 07/25/19 18:59 06/29/19 08:42 Ken Laguerre MD Jun 29, 2019 11:39
--- NOTE | 2019-06-29 11:45 | Pulmonology Progress Note ---
Assessment/Plan Assessment/Plan IMPRESSION: 1. alf resident. 2. Positive history of exposure to COVID-19 patients. 3. Hypertension. 4. Diabetes mellitus. 5. Atelectasis. DISCUSSION: Continue current medications and care. Continue oxygen and pulmonary hygiene. I will follow carefully. Saturating well on RA COVID 19 negative pcr x2 Lenin Harris M.D. Subjective ROS Limited/Unobtainable: Yes Interval Events: Initial COVID 19 pcr negative x 2 Constitutional: Denies: fever HEENT: Repors: no symptoms Respiratory: Reports: no symptoms Cardiovascular: Reports: no symptoms Gastrointestinal/Abdominal: Reports: no symptoms Allergies: Coded Allergies: No Known Allergies (Unverified , 06/12/17) All Systems: reviewed and negative except above Objective Last 24 Hour Vital Signs Date Time Temp Pulse Resp B/P (MAP) Pulse Ox O2 Delivery O2 Flow Rate FiO2 06/29/19 09:00 Room Air 06/29/19 08:00 96.6 83 18 166/95 (118) 94 06/29/19 04:00 97.2 71 18 157/89 (111) 71 06/29/19 04:00 62 06/29/19 00:00 97.6 72 18 157/89 (111) 71 06/29/19 00:00 62 06/28/19 21:00 Room Air 06/28/19 20:00 97.3 72 19 155/88 (110) 97 06/28/19 16:00 98.6 74 21 140/80 (100) 99 06/28/19 16:00 77 06/28/19 12:00 79 06/28/19 12:00 98.2 75 20 136/79 (98) 98 Intake and Output 06/28/19 06/29/19 19:00 07:00 Intake Total 800 ml 200 ml Balance 800 ml 200 ml Intake Oral 800 ml 200 ml # Voids 6 General Appearance: no acute distress HEENT: mucous membranes moist Respiratory/Chest: chest wall non-tender, lungs clear Cardiovascular: normal peripheral pulses, normal rate Abdomen: soft, non tender Extremities: no edema Neurologic/Psychiatric: alert, responsive Microbiology Date/Time Source Procedure Growth Status 06/27/19 15:10 Nasopharynx Coronavirus COVID-19 PCR ([facility]) - Final Complete Laboratory Tests 06/29/19 05:52: White Blood Count 4.8, Red Blood Count 4.89, Hemoglobin 15.9, Hematocrit 43.3, Mean Corpuscular Volume 88, Mean Corpuscular Hemoglobin 32.6H, Mean Corpuscular Hemoglobin Concent 36.8H, Red Cell Distribution Width 10.8L, Platelet Count 132L , Mean Platelet Volume 6.8, Neutrophils (%) (Auto) 60.5, Lymphocytes (%) (Auto) 30.0, Monocytes (%) (Auto) 7.3, Eosinophils (%) (Auto) 1.4, Basophils (%) (Auto ) 0.8, Sodium Level 140, Potassium Level 3.5, Chloride Level 104, Carbon Dioxide Level 21, Anion Gap 15, Blood Urea Nitrogen 14, Creatinine 0.8, Estimat Glomerular Filtration Rate > 60, Glucose Level 106, Calcium Level 10.2H, Magnesium Level 1.7L, Total Bilirubin 0.6, Aspartate Amino Transf (AST/SGOT) 47H , Alanine Aminotransferase (ALT/SGPT) 40, Alkaline Phosphatase 54, Pro-B-Type Natriuretic Peptide 267H, Total Protein 7.8, Albumin 4.0, Globulin 3.8, Albumin/ Globulin Ratio 1.1 Current Medications Medications (Trade) Dose Ordered Sig/Nalini Route PRN Reason Start Time Stop Time Status Last Admin Dose Admin Acetaminophen (Tylenol) 650 mg Q4H PRN ORAL fever, PRESSLEY, pain 06/25/19 18:00 07/25/19 17:59 06/28/19 04:23 Aspirin (ASA) 81 mg DAILY ORAL 06/26/19 09:00 08/10/19 08:59 06/29/19 08:37 Atorvastatin Calcium (Lipitor) 10 mg QHS ORAL 06/25/19 21:00 09/23/19 20:59 06/28/19 21:00 Citalopram Hydrobromide (CeleXA) 20 mg DAILY ORAL 06/29/19 09:00 07/29/19 08:59 06/29/19 08:37 Dextrose (Dextrose 50%) 25 ml Q30M PRN IV Hypoglycemia 06/25/19 18:00 09/23/19 17:59 Dextrose (Dextrose 50%) 50 ml Q30M PRN IV Hypoglycemia 06/25/19 18:00 09/23/19 17:59 Heparin Sodium (Porcine) (Heparin 5000 units/ml) 5,000 units EVERY 12 HOURS SUBQ 06/26/19 09:00 08/10/19 08:59 06/29/19 08:38 Insulin Aspart (NovoLOG) BEFORE MEALS AND HS SUBQ 06/25/19 21:00 09/23/19 20:59 06/28/19 13:09 Insulin Aspart (NovoLOG) NOVOTIAC SUBQ 06/26/19 06:30 09/24/19 06:29 Lorazepam (Ativan 2mg/ml 1ml) 1 mg Q4H PRN IM For Anxiety 06/28/19 13:30 07/05/19 13:29 06/28/19 13:49 Magnesium Hydroxide (Mom) 30 ml DAILY PRN ORAL Constipation 06/25/19 18:00 07/25/19 17:59 Sodium Chloride 1,000 ml @ 75 mls/hr [id number] IV 06/25/19 19:00 07/25/19 18:59 06/29/19 08:42 Lenin Harris MD Jun 29, 2019 11:45
[2019-06-29 12:00] VITALS: BP 133/80
--- NOTE | 2019-06-29 14:06 | NUR ---
HAND-OFF: Report given to LESLIE Jacobson. Pt transferred to 3E. Pt in stable condition, endorsed plan of care.
--- NOTE | 2019-06-29 14:27 | NUR ---
NURSE NOTES: Patient arrived on unit via hospital bed. Stable. Denies pain or SOB. Patient is uncooperative and will not listen to RN at this time. Patient instructed to use call light for assistance. Patient needs reinforcement. Patient is in restraints at this time. Patient appears agitated. All safety measures provided. Patient is in bed in locked and lowest position with call light within reach. Will continue to monitor.
[2019-06-29] MEDS ORDERED: Milk of Magnesia 30ml Ud ORAL PRN (15:30)
--- NOTE | 2019-06-29 16:00 | NUR ---
NURSE NOTES: Patient is attempting to get out of bed. Patient is pulling on restraints. Patient managed to pull left hand through restraint and attempted to remove right restraint. Patient yanked IV tubing. IV site intact and patent, reinforced with kerlix. Soft restraints placed on patient's bilateral wrists as ordered and secured. Patient pulled off condom catheter and refused to have it placed again. Patient is extremely restless, anxious, and agitated. All safety measures provided. Patient is in bed in locked and lowest position with call light within reach and bed alarm on. Will continue to monitor.
[2019-06-29] MEDS: LORazepam Inj 2mg/ml 1ml IM PRN ×2 (16:24→22:18)
--- NOTE | 2019-06-29 19:28 | NUR ---
HAND-OFF: Report given to []. Addendum: 06/29/19 at 1928 by DHARMESH CHILD RN HAND-OFF: Report given to Martine NELSON. patient is stable.
--- NOTE | 2019-06-29 19:29 | NUR ---
NURSE NOTES: Received report from Indira NELSON. Rounding is done. Patient is a/o x1, and yelling and uncooperative. Denies pain or SOB. IV site is intact and patent. Checked the restraints and circulation. All safety measures provided. Bed is on alarm, locked, and lowest position. Call light within reach. Will continue to monitor.
[2019-06-29 20:00] VITALS: BP 141/90
[2019-06-30] VITALS: BP 136/89
--- NOTE | 2019-06-30 02:00 | Progress Note ---
DATE: 06/29/2019 SUBJECTIVE: The patient is easily agitated, on his line and is attempting to come out of the restraint and bed, difficult to manage. MENTAL STATUS EXAMINATION: The patient is awake and disoriented. Mood is agitated. Affect is flat. Thought process is concrete. Thought content, no suicidal or homicidal ideation. Cognition is impaired. Insight and judgment, impaired. ASSESSMENT: 1. Dementia with behavior disturbance. 2. Anxiety disorder. PLAN: 1. Continue Celexa. 2. Ativan p.r.n. 3. Discussed with the nurse. Brad Bray M.D. DR: Heath JOB#: [id number] CC: IRVIN
[2019-06-30 04:00] VITALS: BP 140/88
--- NOTE | 2019-06-30 05:15 | Progress Note ---
DATE: 06/29/2019 CARDIOLOGY PROGRESS NOTE SUBJECTIVE: The patient is still with agitation. He remains on IV antimicrobials for positive blood cultures. Monitored rhythm, sinus. No recurring bradycardia. OBJECTIVE: VITAL SIGNS: Blood pressure 157/89, pulse 71, and respiratory rate 18. Subsequently blood pressure was 141/90 and oxygen saturation on room air 94%. LUNGS: Bilateral breath sounds. No wheezing. CARDIAC: Regular rhythm and rate. Normal S1 and S2. ABDOMEN: Soft. EXTREMITIES: No edema. LABORATORY DATA: White count 4.8 and hemoglobin 15.9. Potassium 3.5, BUN 14, and creatinine 0.8. Magnesium 1.7. Pro-natriuretic peptide is slightly increased at 267. Blood cultures with Staph haemolyticus. IMPRESSION: 1. COVID-19 negative, coag-negative Staph bacteremia is likely a contaminated collection specimen according to Infectious Disease child development consultant. 2. Hypertension with elevated blood pressure. 3. Diabetes mellitus with stable glucose. 4. Bradycardia, recovered. 5. Hypomagnesemia. 6. Acute diastolic congestive heart failure. 7. Ischemic cardiomyopathy with stable angina. PLAN: 1. Intravenous magnesium. 2. Discontinue IV fluids. 3. Continue current antianginal and antihypertensive regimen. 4. Additional blood pressure control added. 5. DVT prophylaxis. 6. Discharge planning. Nikos Kaiser M.D. DR: RADHAMES JOB#: [id number] CC:
[2019-06-30] MEDS: NovoLOG Insulin Flexpen SUBQ SCH ×7 (06:30→21:00)
--- NOTE | 2019-06-30 07:36 | NUR ---
HAND-OFF: Report given to Francis NELSON. Patient in stable condition.
[2019-06-30 08:00] VITALS: BP 137/86
--- NOTE | 2019-06-30 08:00 | NUR ---
NURSE NOTES: Received report Martine NELSON, pt a/a/o laying in bed with no signs of distress or other issues at this time. pt is bilateral soft wrist restrains, per report will today at 18:50, RN will contact MD if restrains needs to be renewed. IV right PRESSLEY gauge #22 heplock. pt has a condom cath in place. call light within reach, bed in lowest position, side rales up x2. I will f/u as needed.
--- NOTE | 2019-06-30 08:16 | Discharge Summary ---
Discharge Summary Hospital Course Date of Admission Jun 25, 2019 at 14:45 Date of Discharge 06/30/19 Admitting Diagnosis acute coronary syndrome,eval covid 19 HPI Pablo Blum is a 84 year old male who was admitted on Jun 25, 2019 at 14:45 for Acute Coronary Syndrome, Evaluation Covid 19 Consultations cards, ID, pulm Hospital Course admitted with fevers and ams. concern re: covid 19. started on iv abx +bradycardia- resolved. cards and ID consulted. covid neg x 2. blood cultures positive but felt to be contaminants. IV abx dcd by ID. dcd back to snf of abx no isolation needed diet regular Discharge Condition Upon Discharge: improving Discharge Vital Signs Last Vital Signs Date Time Temp Pulse Resp B/P (MAP) Pulse Ox O2 Delivery O2 Flow Rate FiO2 06/30/19 04:00 98.0 90 19 140/88 (105) 94 06/29/19 21:00 Room Air 06/26/19 18:00 2.0 Discharge Disposition Patient was discharged to Discharge Diagnoses: (1) Bradycardia (2) Bacteremia (3) Sepsis (4) Toxic metabolic encephalopathy (5) Suspected COVID-19 virus infection Rakesh Martinez MD June 30, 2019 08:16
[2019-06-30] MEDS ORDERED: ISOSORBIDE MONO30 M1 ORAL (08:17)
[2019-06-30] MEDS: Citalopram Hydrobromide 10mg Tab ORAL SCH (09:13)
[2019-06-30] MEDS: Imdur 30mg tab ORAL SCH (09:13)
[2019-06-30] MEDS: Heparin 5000 units/ml inj SUBQ SCH ×2 (09:14→21:00)
[2019-06-30] MEDS: LORazepam Inj 2mg/ml 1ml IM PRN ×2 (09:14→14:02)
[2019-06-30] MEDS: Aspirin Baby 81mg ORAL SCH (09:23)
--- NOTE | 2019-06-30 10:00 | NUR ---
NURSE NOTES: Pt start to being agitated, screaming in pulling things out. RN will give Ativan as indicated and will continue to monitor. soft wrist restrains in place.
--- NOTE | 2019-06-30 10:34 | Infectious Diseases Prog Note ---
Assessment/Plan Assessment/Plan antibiotics : none A 1. coag neg staph bacteremia likely contaminated 2. COVID 19 negative x 2, 4.26.20, 4.28.20 3. Hypertension. 4. Diabetes. 5. Schizoaffective disorder. P 1. continue off antibiotics Subjective ROS Limited/Unobtainable: Yes Allergies: Coded Allergies: No Known Allergies (Unverified , 06/12/17) Objective Vital Signs Last 24 Hour Vital Signs Date Time Temp Pulse Resp B/P (MAP) Pulse Ox O2 Delivery O2 Flow Rate FiO2 06/30/19 09:13 137/86 06/30/19 09:13 137/86 06/30/19 08:00 98.4 76 18 137/86 (103) 97 06/30/19 04:00 98.0 90 19 140/88 (105) 94 06/30/19 00:00 97.8 98 19 136/89 (105) 94 06/29/19 21:00 Room Air 06/29/19 20:00 98.1 88 18 141/90 (107) 93 06/29/19 16:00 06/29/19 12:00 98.1 85 18 133/80 (97) 94 Height (Feet): 5 Height (Inches): 6.00 Weight (Pounds): 138 Respiratory/Chest: lungs clear Cardiovascular: normal rate, regular rhythm, no gallop/murmur Abdomen: soft, non tender Extremities: no edema Microbiology Date/Time Source Procedure Growth Status 06/27/19 15:10 Nasopharynx Coronavirus COVID-19 PCR ([facility]) - Final Complete Current Medications Medications (Trade) Dose Ordered Sig/Nalini Route PRN Reason Start Time Stop Time Status Last Admin Dose Admin Acetaminophen (Tylenol) 650 mg Q4H PRN ORAL fever, PRESSLEY, pain 06/29/19 18:00 07/25/19 17:59 Aspirin (ASA) 81 mg DAILY ORAL 06/30/19 09:00 08/10/19 08:59 06/30/19 09:23 Atorvastatin Calcium (Lipitor) 10 mg QHS ORAL 06/29/19 21:00 09/23/19 20:59 06/29/19 21:00 Benazepril HCl (Lotensin) 20 mg DAILY ORAL 06/30/19 09:00 07/30/19 08:59 06/30/19 09:13 Citalopram Hydrobromide (CeleXA) 20 mg DAILY ORAL 06/30/19 09:00 07/29/19 08:59 06/30/19 09:13 Dextrose (Dextrose 50%) 25 ml Q30M PRN IV Hypoglycemia 06/29/19 14:30 09/23/19 17:59 Dextrose (Dextrose 50%) 50 ml Q30M PRN IV Hypoglycemia 06/29/19 14:30 09/23/19 17:59 Famotidine (Pepcid) 20 mg DAILY ORAL 06/30/19 09:00 09/28/19 08:59 06/30/19 09:13 Heparin Sodium (Porcine) (Heparin 5000 units/ml) 5,000 units EVERY 12 HOURS SUBQ 06/29/19 21:00 08/10/19 08:59 06/30/19 09:14 Insulin Aspart (NovoLOG) BEFORE MEALS AND HS SUBQ 06/29/19 16:30 09/23/19 20:59 Insulin Aspart (NovoLOG) NOVOTIAC SUBQ 06/29/19 16:50 09/24/19 06:29 Isosorbide Mononitrate (Imdur) 30 mg DAILY ORAL 06/30/19 09:00 07/30/19 08:59 06/30/19 09:13 Lorazepam (Ativan 2mg/ml 1ml) 1 mg Q4H PRN IM For Anxiety 06/29/19 15:00 07/05/19 14:59 06/30/19 09:14 Magnesium Hydroxide (Mom) 30 ml DAILYPRN PRN ORAL Constipation 06/29/19 15:30 07/29/19 15:29 Albaro Dawson MD June 30, 2019 10:34
--- NOTE | 2019-06-30 11:32 | Pulmonology Progress Note ---
Assessment/Plan Assessment/Plan IMPRESSION: 1. longterm resident. 2. Positive history of exposure to COVID-19 patients. 3. Hypertension. 4. Diabetes mellitus. 5. Atelectasis. DISCUSSION: Continue current medications and care. Continue oxygen and pulmonary hygiene. I will follow carefully. Saturating well on RA COVID 19 negative pcr x2 Lenin Harris M.D. Subjective ROS Limited/Unobtainable: Yes Interval Events: Initial COVID 19 pcr negative x 2 Constitutional: Denies: fever HEENT: Repors: no symptoms Respiratory: Reports: no symptoms Cardiovascular: Reports: no symptoms Gastrointestinal/Abdominal: Reports: no symptoms Allergies: Coded Allergies: No Known Allergies (Unverified , 06/12/17) All Systems: reviewed and negative except above Objective Last 24 Hour Vital Signs Date Time Temp Pulse Resp B/P (MAP) Pulse Ox O2 Delivery O2 Flow Rate FiO2 06/30/19 09:13 137/86 06/30/19 09:13 137/86 06/30/19 08:00 98.4 76 18 137/86 (103) 97 06/30/19 04:00 98.0 90 19 140/88 (105) 94 06/30/19 00:00 97.8 98 19 136/89 (105) 94 06/29/19 21:00 Room Air 06/29/19 20:00 98.1 88 18 141/90 (107) 93 06/29/19 16:00 06/29/19 12:00 98.1 85 18 133/80 (97) 94 Intake and Output 06/29/19 06/30/19 19:00 07:00 Intake Total 200 ml Output Total 400 ml Balance -200 ml Intake Oral 200 ml Output Urine Total 400 ml # Voids 1 General Appearance: no acute distress HEENT: mucous membranes moist Respiratory/Chest: chest wall non-tender, lungs clear Cardiovascular: normal peripheral pulses, normal rate Abdomen: soft, non tender Extremities: no edema Neurologic/Psychiatric: alert, responsive Microbiology Date/Time Source Procedure Growth Status 06/27/19 15:10 Nasopharynx Coronavirus COVID-19 PCR ([facility]) - Final Complete Current Medications Medications (Trade) Dose Ordered Sig/Nalini Route PRN Reason Start Time Stop Time Status Last Admin Dose Admin Acetaminophen (Tylenol) 650 mg Q4H PRN ORAL fever, PRESSLEY, pain 06/29/19 18:00 07/25/19 17:59 Aspirin (ASA) 81 mg DAILY ORAL 06/30/19 09:00 08/10/19 08:59 06/30/19 09:23 Atorvastatin Calcium (Lipitor) 10 mg QHS ORAL 06/29/19 21:00 09/23/19 20:59 06/29/19 21:00 Benazepril HCl (Lotensin) 20 mg DAILY ORAL 06/30/19 09:00 07/30/19 08:59 06/30/19 09:13 Citalopram Hydrobromide (CeleXA) 20 mg DAILY ORAL 06/30/19 09:00 07/29/19 08:59 06/30/19 09:13 Dextrose (Dextrose 50%) 25 ml Q30M PRN IV Hypoglycemia 06/29/19 14:30 09/23/19 17:59 Dextrose (Dextrose 50%) 50 ml Q30M PRN IV Hypoglycemia 06/29/19 14:30 09/23/19 17:59 Famotidine (Pepcid) 20 mg DAILY ORAL 06/30/19 09:00 09/28/19 08:59 06/30/19 09:13 Heparin Sodium (Porcine) (Heparin 5000 units/ml) 5,000 units EVERY 12 HOURS SUBQ 06/29/19 21:00 08/10/19 08:59 06/30/19 09:14 Insulin Aspart (NovoLOG) BEFORE MEALS AND HS SUBQ 06/29/19 16:30 09/23/19 20:59 Insulin Aspart (NovoLOG) NOVOTIAC SUBQ 06/29/19 16:50 09/24/19 06:29 Isosorbide Mononitrate (Imdur) 30 mg DAILY ORAL 06/30/19 09:00 07/30/19 08:59 06/30/19 09:13 Lorazepam (Ativan 2mg/ml 1ml) 1 mg Q4H PRN IM For Anxiety 06/29/19 15:00 07/05/19 14:59 06/30/19 09:14 Magnesium Hydroxide (Mom) 30 ml DAILYPRN PRN ORAL Constipation 06/29/19 15:30 07/29/19 15:29 Lenin Harris MD June 30, 2019 11:32
[2019-06-30 12:00] VITALS: BP 111/77
[2019-06-30] MEDS ORDERED: 1/2 NS 1000ml IV ONE (13:25)
[2019-06-30] MEDS ORDERED: Tubing IV Secondary IV ONE (13:25)
--- NOTE | 2019-06-30 14:30 | NUR ---
DISCHARGE PLANNING: PATIENT REFERRED TO [facility] T:[phone] F: [phone] CM WILL F/U Addendum: 06/30/19 at 1433 by HILLARY JORDAN LVN PER [facility] AT [facility] - NOT ACCEPTING PATIENT AT THIS TIME PLAN B: PATIENT REFERRED BACK TO [facility] T:[phone] F:[phone] Addendum: 06/30/19 at 1710 by HILLARY JORDAN LVN PATIENT NEEDS TO BE ACCEPTED BY [facility] BED MAY BE AVAILABLE ON WEEKEND IF [facility] WILL CALL WITH THE BED
[2019-06-30 16:00] VITALS: BP 100/58
--- NOTE | 2019-06-30 19:18 | NUR ---
NURSE NOTES: Received report from Francis NELSON. Rounding is done. Patient is a/o x1, and is asleep now. No any distress or SOB noted at this time. IV site is intact and patent. Checked the restraints and circulation. All safety measures provided. Bed is on alarm, locked, and lowest position. Call light within reach. Will continue to monitor.
--- NOTE | 2019-06-30 19:24 | NUR ---
HAND-OFF: Report given to Martine NELSON, pt in stable condition. pt continues with soft wrist restrains. - During my shift pt continues to agitated and restless. Ativan given x2 as order by . - RN called pt's son to give up date of pts condition. - per returned case inspector we are waiting for department of health clearance to transfer patient back to previous SNF "[facility]"
[2019-06-30 20:00] VITALS: BP 106/61
--- NOTE | 2019-06-30 21:00 | Progress Note ---
DATE: 06/30/2019 CARDIOLOGY PROGRESS NOTE SUBJECTIVE: The patient is COVID-19 negative x2. The patient is afebrile, in no distress. Oxygen saturation 93 to 97% on room air. PHYSICAL EXAMINATION: VITAL SIGNS: Blood pressure 137/86, pulse 76, respiratory rate 18, and afebrile. LUNGS: Good breath sounds. HEART: Regular rhythm and rate. Normal S1, S2. A 1/6 systolic murmur at base. ABDOMEN: Soft. EXTREMITIES: No edema. LABORATORY AND DIAGNOSTIC DATA: White count 4.8, yesterday hemoglobin 15.9, magnesium 1.7 yesterday and repletion was given. IMPRESSION: 1. No signs of acute COVID-19 infection. 2. No signs of acute bacterial infection, contaminant related positive blood culture. 3. Hypomagnesemia status post replacement therapy. 4. Cerebrovascular disease with baseline dementia. 5. Ischemic heart disease with stable angina and no signs of acute congestive heart failure clinically. PLAN: 1. Continue current medication regimen. 2. Discharge planning to halfway facility when bed is secured. 3. facility cannot accept the patient before CDC clearance despite negative COVID-19 status documented. Nikos Kaiser M.D. DR: Celia JOB#: [id number] CC:
--- NOTE | 2019-06-30 23:40 | Psych Consult Progress Note ---
Psychiatry Progress Note Psychiatry Progress Note Medications Current Medications Medications (Trade) Dose Ordered Sig/Nalini Route PRN Reason Start Time Stop Time Status Last Admin Dose Admin Acetaminophen (Tylenol) 650 mg Q4H PRN ORAL fever, PRESSLEY, pain 06/29/19 18:00 07/25/19 17:59 Aspirin (ASA) 81 mg DAILY ORAL 06/30/19 09:00 08/10/19 08:59 06/30/19 09:23 Atorvastatin Calcium (Lipitor) 10 mg QHS ORAL 06/29/19 21:00 09/23/19 20:59 06/30/19 21:37 Benazepril HCl (Lotensin) 20 mg DAILY ORAL 06/30/19 09:00 07/30/19 08:59 06/30/19 09:13 Citalopram Hydrobromide (CeleXA) 20 mg DAILY ORAL 06/30/19 09:00 07/29/19 08:59 06/30/19 09:13 Dextrose (Dextrose 50%) 25 ml Q30M PRN IV Hypoglycemia 06/29/19 14:30 09/23/19 17:59 Dextrose (Dextrose 50%) 50 ml Q30M PRN IV Hypoglycemia 06/29/19 14:30 09/23/19 17:59 Famotidine (Pepcid) 20 mg DAILY ORAL 06/30/19 09:00 09/28/19 08:59 06/30/19 09:13 Heparin Sodium (Porcine) (Heparin 5000 units/ml) 5,000 units EVERY 12 HOURS SUBQ 06/29/19 21:00 08/10/19 08:59 06/30/19 09:14 Insulin Aspart (NovoLOG) BEFORE MEALS AND HS SUBQ 06/29/19 16:30 09/23/19 20:59 06/30/19 11:30 Insulin Aspart (NovoLOG) NOVOTIAC SUBQ 06/29/19 16:50 09/24/19 06:29 06/30/19 16:50 Isosorbide Mononitrate (Imdur) 30 mg DAILY ORAL 06/30/19 09:00 07/30/19 08:59 06/30/19 09:13 Lorazepam (Ativan 2mg/ml 1ml) 1 mg Q4H PRN IM For Anxiety 06/29/19 15:00 07/05/19 14:59 06/30/19 14:02 Magnesium Hydroxide (Mom) 30 ml DAILYPRN PRN ORAL Constipation 06/29/19 15:30 07/29/19 15:29 Allergies: Coded Allergies: No Known Allergies (Unverified , 06/12/17) Objective Data Height (Feet): 5 Height (Inches): 6.00 Weight (Pounds): 138 Assessment/Plan Status: stable, unchanged Brad Bray MD June 30, 2019 23:40
[2019-07-01] VITALS: BP 129/74
[2019-07-01 04:00] VITALS: BP 154/94
[2019-07-01] MEDS: NovoLOG Insulin Flexpen SUBQ SCH ×4 (05:52→11:50)
--- NOTE | 2019-07-01 07:10 | NUR ---
HAND-OFF: Report given to Francis NELSON. Patient in stable condition.
[2019-07-01 08:00] VITALS: BP_SYST 132; BP_SYST 148; BP_DIAS 60; BP_DIAS 64
--- NOTE | 2019-07-01 08:31 | Pulmonology Progress Note ---
Assessment/Plan Assessment/Plan IMPRESSION: 1. senior living resident. 2. Positive history of exposure to COVID-19 patients. 3. Hypertension. 4. Diabetes mellitus. 5. Atelectasis. DISCUSSION: Continue current medications and care. Continue oxygen and pulmonary hygiene. I will follow carefully. Saturating well on RA COVID 19 negative pcr x2 Lenin Harris M.D. Subjective ROS Limited/Unobtainable: Yes Interval Events: Initial COVID 19 pcr negative x 2 Constitutional: Denies: fever HEENT: Repors: no symptoms Respiratory: Reports: no symptoms Cardiovascular: Reports: no symptoms Gastrointestinal/Abdominal: Reports: no symptoms Allergies: Coded Allergies: No Known Allergies (Unverified , 06/12/17) All Systems: reviewed and negative except above Objective Last 24 Hour Vital Signs Date Time Temp Pulse Resp B/P (MAP) Pulse Ox O2 Delivery O2 Flow Rate FiO2 07/01/19 04:00 96.8 61 19 154/94 (114) 95 07/01/19 00:00 96.5 75 18 129/74 (92) 98 06/30/19 21:00 Room Air 06/30/19 20:00 98.3 75 19 106/61 (76) 97 06/30/19 16:00 97.7 90 20 100/58 (72) 98 06/30/19 12:00 97.9 99 20 111/77 (88) 97 06/30/19 09:13 137/86 06/30/19 09:13 137/86 06/30/19 09:00 Room Air Intake and Output 06/30/19 07/01/19 19:00 07:00 Intake Total 500 ml 100 ml Output Total 500 ml 500 ml Balance 0 ml -400 ml Intake Oral 500 ml 100 ml Output Urine Total 500 ml 500 ml General Appearance: no acute distress HEENT: mucous membranes moist Respiratory/Chest: chest wall non-tender, lungs clear Cardiovascular: normal peripheral pulses, normal rate Abdomen: soft, non tender Extremities: no edema Neurologic/Psychiatric: alert, responsive Current Medications Medications (Trade) Dose Ordered Sig/Nalini Route PRN Reason Start Time Stop Time Status Last Admin Dose Admin Acetaminophen (Tylenol) 650 mg Q4H PRN ORAL fever, PRESSLEY, pain 06/29/19 18:00 07/25/19 17:59 Aspirin (ASA) 81 mg DAILY ORAL 06/30/19 09:00 08/10/19 08:59 06/30/19 09:23 Atorvastatin Calcium (Lipitor) 10 mg QHS ORAL 06/29/19 21:00 09/23/19 20:59 06/30/19 21:37 Benazepril HCl (Lotensin) 20 mg DAILY ORAL 06/30/19 09:00 07/30/19 08:59 06/30/19 09:13 Citalopram Hydrobromide (CeleXA) 20 mg DAILY ORAL 06/30/19 09:00 07/29/19 08:59 06/30/19 09:13 Dextrose (Dextrose 50%) 25 ml Q30M PRN IV Hypoglycemia 06/29/19 14:30 09/23/19 17:59 Dextrose (Dextrose 50%) 50 ml Q30M PRN IV Hypoglycemia 06/29/19 14:30 09/23/19 17:59 Famotidine (Pepcid) 20 mg DAILY ORAL 06/30/19 09:00 09/28/19 08:59 06/30/19 09:13 Heparin Sodium (Porcine) (Heparin 5000 units/ml) 5,000 units EVERY 12 HOURS SUBQ 06/29/19 21:00 08/10/19 08:59 06/30/19 09:14 Insulin Aspart (NovoLOG) BEFORE MEALS AND HS SUBQ 06/29/19 16:30 09/23/19 20:59 06/30/19 11:30 Insulin Aspart (NovoLOG) NOVOTIAC SUBQ 06/29/19 16:50 09/24/19 06:29 06/30/19 16:50 Isosorbide Mononitrate (Imdur) 30 mg DAILY ORAL 06/30/19 09:00 07/30/19 08:59 06/30/19 09:13 Lorazepam (Ativan 2mg/ml 1ml) 1 mg Q4H PRN IM For Anxiety 06/29/19 15:00 07/05/19 14:59 06/30/19 14:02 Magnesium Hydroxide (Mom) 30 ml DAILYPRN PRN ORAL Constipation 06/29/19 15:30 07/29/19 15:29 Lenin Harris MD July 01, 2019 08:31
[2019-07-01] MEDS: Citalopram Hydrobromide 10mg Tab ORAL SCH (10:00)
[2019-07-01] MEDS: Heparin 5000 units/ml inj SUBQ SCH (10:00)
[2019-07-01] MEDS: Aspirin Baby 81mg ORAL SCH (10:00)
[2019-07-01] MEDS: Imdur 30mg tab ORAL SCH (10:00)
[2019-07-01] MEDS: LORazepam Inj 2mg/ml 1ml IM PRN (10:13)
--- NOTE | 2019-07-01 10:26 | General Progress Note ---
Assessment/Plan Problem List: (1) Toxic metabolic encephalopathy ICD Codes: G92 - Toxic encephalopathy SNOMED: 746457632 (2) Bacteremia ICD Codes: R78.81 - Bacteremia SNOMED: 2744049 (3) Sepsis ICD Codes: A41.9 - Sepsis, unspecified organism SNOMED: 12737140 (4) Suspected COVID-19 virus infection ICD Codes: Z20.828 - Contact with and (suspected) exposure to other viral communicable diseases SNOMED: 385071846 (5) Bradycardia ICD Codes: R00.1 - Bradycardia, unspecified SNOMED: 72229493 (6) Hypoxia ICD Codes: R09.02 - Hypoxemia SNOMED: 693847489 (7) Chest pain ICD Codes: R07.9 - Chest pain, unspecified SNOMED: 92110905 (8) Dementia ICD Codes: F03.90 - Unspecified dementia without behavioral disturbance SNOMED: 90645880 Status: stable, unchanged Assessment/Plan: stable cont current rx abx per id anxiolytics await dept of health clearance for dc back to [facility] Subjective ROS Limited/Unobtainable: Yes Constitutional: Reports: weakness HEENT: Reports: no symptoms Cardiovascular: Reports: no symptoms Respiratory: Reports: no symptoms Gastrointestinal/Abdominal: Reports: no symptoms Genitourinary: Reports: no symptoms Neurologic/Psychiatric: Reports: anxiety Endocrine: Reports: no symptoms Hematologic/Lymphatic: Reports: no symptoms Allergies: Coded Allergies: No Known Allergies (Unverified , 06/12/17) All Systems: reviewed and negative except above Subjective no events. remains intermittently agitated and confused. trying to get out of bed. no fevers. covid neg x 2 +blood cultures. on iv abx. restrained for safety.awaiting dept of health clearance for dc Objective Last 24 Hour Vital Signs Date Time Temp Pulse Resp B/P (MAP) Pulse Ox O2 Delivery O2 Flow Rate FiO2 07/01/19 10:00 132/60 07/01/19 10:00 132/60 07/01/19 04:00 96.8 61 19 154/94 (114) 95 07/01/19 00:00 96.5 75 18 129/74 (92) 98 06/30/19 21:00 Room Air 06/30/19 20:00 98.3 75 19 106/61 (76) 97 06/30/19 16:00 97.7 90 20 100/58 (72) 98 06/30/19 12:00 97.9 99 20 111/77 (88) 97 Intake and Output 06/30/19 07/01/19 19:00 07:00 Intake Total 500 ml 100 ml Output Total 500 ml 500 ml Balance 0 ml -400 ml Intake Oral 500 ml 100 ml Output Urine Total 500 ml 500 ml Height (Feet): 5 Height (Inches): 6.00 Weight (Pounds): 138 Objective General Appearance: WD/WN, alert, confused, combative EENT: normal ENT inspection Neck: non-tender, normal alignment, supple Cardiovascular: normal peripheral pulses, normal rate Respiratory/Chest: chest wall non-tender, lungs clear, normal breath sounds, no respiratory distress, no accessory muscle use Abdomen: normal bowel sounds, non tender, soft, no organomegaly Extremities: normal range of motion Edema: no edema noted Arm (L), no edema noted Arm (R), no edema noted Leg (L), no edema noted Leg (R), no edema noted Pedal (L), no edema noted Pedal (R), no edema noted Generalized Neurologic: micro photographer II-XII grossly normal, alert, disoriented Skin: normal pigmentation Lymphatic: normal submandibular (L), normal submandibular (R) Rakesh Martinez MD July 01, 2019 10:26
[2019-07-01 12:00] VITALS: BP 148/64
--- NOTE | 2019-07-01 12:00 | NUR ---
NURSE NOTES: Received a call from Elis Jacobs s/w [facility] she stated that pt is ok to transfer today. assigned room number number 17"A. assigned MD: Dr. Germain. per their requested to transfer patient after 4:30. to call for report at [phone](P) I will f/u as needed.
--- NOTE | 2019-07-01 13:30 | NUR ---
NURSE NOTES: Called Elis Jacobs to call for report at [phone] s/p with their DON and given report to her. I will f/u as needed. RN called [facility] [phone] to schedule for 17:00 shredder picker. Elis Jacobs Address: [address] [place] [address]. [facility] [id number]
[2019-07-01] MEDS ORDERED: Tubing IV Secondary IV ONE (15:14)
[2019-07-01 16:00] VITALS: BP 138/89
--- NOTE | 2019-07-01 17:00 | NUR ---
NURSE NOTES: Report given to ambulance crew, pt in stable condition. belongings given to ambulance crew, IV removed prior to d/c. Condom cath removed prior as well. I will f/u as needed
--- NOTE | 2019-07-03 01:14 | Progress Note ---
DATE: 07/01/2019 CARDIOLOGY PROGRESS NOTE SUBJECTIVE: The patient is COVID negative x2 now. Blood cultures were positive but felt to be a contaminant. Blood pressure parameters are slightly labile but ranges within the normal limits. Oxygen saturation 98% on room air. Afebrile. Medication regimen reviewed. PHYSICAL EXAMINATION: NECK: No JVD. No edema. LUNGS: Clear. CARDIAC: Regular. Normal S1, S2 with a fourth heart sound. A 1/6 systolic murmur at the apex. IMPRESSION: 1. Ischemic heart disease with stable angina. 2. No evidence of COVID-19 infection, no signs of acute bacteremia. 3. Hypomagnesemia, corrected. 4. Cerebrovascular disease with baseline dementia. 5. Aspiration pneumonia suspected with no clinical residual at this time. PLAN: 1. Stable for return to correction facility. 2. Discharge medication regimen reviewed with primary care physician. Hospital course and further plan of care following discharge reviewed with primary care physician, . Nikos Kaiser M.D. DR: Celai JOB#: [id number] CC:
--- NOTE | 2019-07-03 09:15 | Progress Note ---
DATE: 07/01/2019 SUBJECTIVE: The patient is having episodes of agitation. Continues to be difficult to manage. Attempting to come out of bed, poor insight. MENTAL STATUS EXAMINATION: The patient is alert, disoriented. Mood is neutral. Affect is flat. Thought process is concrete. Thought content, no suicidal or homicidal ideation. ASSESSMENT: Stable. PLAN: We will continue current medications. Brad Bray M.D. DR: Vaishnavi JOB#: [id number] CC:
== END 2019-07-01 17:00 | DRG 871 ==
LOC: EDBD 13:31 → EMR 14:26 → UNDOADMIN 14:45 → 2E 14:45 → EDBEDREQ 06-26 00:05 → 2E 06-26 21:07 → 3E 06-29 14:06
DX: A41.9 Sepsis, unspecified organism (principal); G92 Toxic encephalopathy; I50.31 Acute diastolic (congestive) heart failure; I24.9 Acute ischemic heart disease, unspecified; J98.11 Atelectasis; F01.51 Vascular dementia, unspecified severity, with behavioral disturbance; F25.9 Schizoaffective disorder, unspecified; E11.9 Type 2 diabetes mellitus without complications; R00.1 Bradycardia, unspecified; K21.9 Gastro-esophageal reflux disease without esophagitis; I11.9 Hypertensive heart disease without heart failure; M19.90 Unspecified osteoarthritis, unspecified site; F32.9 Major depressive disorder, single episode, unspecified; Z79.4 Long term (current) use of insulin; E78.5 Hyperlipidemia, unspecified; E83.42 Hypomagnesemia; I25.118 Atherosclerotic heart disease of native coronary artery with other forms of angina pectoris
CPT/HCPCS: 36415; 71045; 71260; 74177; 80053; 80061; 80202; 82550; 82553; 82962; 83605; 83690; 83735; 83880; 84443; 84484; 85025; 86710; 87040; 87081; 87181; 87635; 93005; 99285; J1815; J8499